=== PATIENT | male | born 1970 | race Caucasian/White ===

== ENCOUNTER 2020-07-20 16:39 | Emergency (ER) | payer OTHER ==
[~2020-07-20] VITALS: Ht 193 cm; Wt 79.4 kg
[~2020-07-20 16:39] MED LIST: ALBU90OI INH; ALBU90OI61 INH; Amitriptyline H50 MG PO; CITA20 PO; DICL25ER PO; GABA300 PO; HYDPAM50 PO; IBUP800 PO; Norco 5-325 Ta1 EACH PO; OLAN5 PO; Valium5 MG PO
[2020-07-20 17:30] LABS: BASOPHILS ABSOLUTE AUTO 0.06 K/mm3 (0.00-0.23); BASOPHILS PERCENT AUTO 1 % (0-2); EOSINOPHILS ABSOLUTE AUTO 0.34 K/mm3 (0.00-0.68); EOSINOPHILS PERCENT AUTO 3 % (0-6); Hematocrit 43.4 % (37.0-53.0); IMMATURE GRAN ABSOLUTE AUTO 0.04 K/mm3 (0.00-0.10); IMMATURE GRAN PERCENT AUTO 0 % (0-1); LYMPHOCYTES ABSOLUTE AUTO 2.28 K/mm3 (0.84-5.20); LYMPHOCYTES PERCENT AUTO 20 % (21-46); MONOCYTES ABSOLUTE AUTO 1.36 K/mm3 (0.16-1.47); MONOCYTES PERCENT AUTO 12 % (4-13); Mean Corpuscular HGB 28.1 pg (26.0-34.0); Mean Corpuscular HGB Conc 32.3 g/dL (31.5-36.5); Mean Corpuscular Volume 87 fL (80-100); Mean Platelet Volume 9.4 fL (9.1-12.4); NEUTROPHILS ABSOLUTE AUTO 7.21 K/mm3 (1.96-9.15); NEUTROPHILS PERCENT AUTO 64 % (41-73); Platelet Count 315 K/mm3 (150-400); RDW Coefficient Variation 15.2 % (11.7-14.2); RDW Standard Deviation 48.7 fL (35.1-46.3); Red Blood Cell Count 4.98 M/mm3 (4.30-5.90); White Blood Cell Count 11.29 K/mm3 (4.00-11.30)
[2020-07-20 17:55] LABS: Alanine Aminotransfer (ALT/SGP 22 U/L (12-78); Albumin, Blood 3.9 g/dL (3.4-5.0); Alk Phos 124 U/L (50-136); Anion Gap 7 mmol/L (6-16); Aspartate Aminotrans (AST/SGOT 21 U/L (12-37); Bilirubin, Total 0.4 mg/dL (0.1-1.0); Blood Urea Nitrogen 15 mg/dL (8-24); Bun/Creatinine Ratio 18.6 (12.0-20.0); CO2, Blood 30 mmol/L (21-32); Calcium, Blood 9.8 mg/dL (8.5-10.1); Chloride, Blood 105 mmol/L (98-108); Creatinine, Blood 0.81 mg/dL (0.60-1.20); Globulin, Blood 4.1 g/dL (2.2-4.0); Glomerular Filtration Rate >60 (60-); Glucose, Blood 82 mg/dL (70-99); Potassium, Blood 4.3 mmol/L (3.5-5.5); Sodium, Blood 142 mmol/L (136-145); Troponin I <0.015 ng/mL (0.000-0.040)
[2020-07-20] MEDS ORDERED: AZIT250 PO (23:05)
[2020-07-20] MEDS ORDERED: ALBU90OI INH (23:05)
== END 2020-07-20 23:39 | disposition home or self-care (01) ==
LOC: ER 16:39
PROVIDERS: Emergency Medicine
DX: J18.9 Pneumonia, unspecified organism (principal); F25.9 Schizoaffective disorder, unspecified; F17.200 Nicotine dependence, unspecified, uncomplicated; Z20.828 Contact with and (suspected) exposure to other viral communicable diseases; Z88.8 Allergy status to other drugs, medicaments and biological substances; Z79.899 Other long term (current) drug therapy
CPT/HCPCS: 36415; 71045; 71260; 80053; 83605; 84484; 85025; 85379; 93005; 93010; 96361; 96365; 96367; 99285-25; J0456; J0696; J7030; J7050; Q9967; U0003

== ENCOUNTER 2020-09-17 09:33 | Emergency (ER) | payer OTHER ==
[~2020-09-17] VITALS: Ht 195.6 cm; Wt 79.4 kg
[~2020-09-17 09:33] MED LIST changes: +AZIT250 PO
[2020-09-17] MEDS ORDERED: CEPH500 PO (10:11)
[2020-09-17] MEDS ORDERED: Bactrim Ds Tab1 EACH PO (10:11)
== END 2020-09-17 10:19 | disposition home or self-care (01) ==
LOC: ER 09:33
DX: L02.413 Cutaneous abscess of right upper limb (principal); F20.9 Schizophrenia, unspecified; F17.210 Nicotine dependence, cigarettes, uncomplicated; Z88.8 Allergy status to other drugs, medicaments and biological substances; Z79.899 Other long term (current) drug therapy
CPT/HCPCS: 99282

== ENCOUNTER 2021-05-06 05:34 | Emergency (ER) | payer OTHER ==
[~2021-05-06] VITALS: Ht 193 cm; Wt 77.1 kg
[~2021-05-06 05:34] MED LIST changes: +Bactrim Ds Tab1 EACH PO; +CEPH500 PO
== END 2021-05-06 08:59 | disposition home or self-care (01) ==
LOC: ER 05:34
DX: S00.93XA Contusion of unspecified part of head, initial encounter (principal); S09.90XA Unspecified injury of head, initial encounter; F17.200 Nicotine dependence, unspecified, uncomplicated; Z88.8 Allergy status to other drugs, medicaments and biological substances; W22.8XXA Striking against or struck by other objects, initial encounter
CPT/HCPCS: 70450; 99284-25; A9270

== ENCOUNTER 2021-05-10 20:12 | Inpatient (IN) | payer OTHER ==
[~2021-05-10] VITALS: Ht 185.4 cm; Wt 75.0 kg
[2021-05-10 20:35] LABS: BASOPHILS ABSOLUTE AUTO 0.08 K/mm3 (0.00-0.23); BASOPHILS PERCENT AUTO 0 % (0-2); Hematocrit 33.3 % (37.0-53.0); Hemoglobin 11.6 g/dL (13.5-17.5); LYMPHOCYTES ABSOLUTE AUTO 0.78 K/mm3 (0.84-5.20); LYMPHOCYTES PERCENT AUTO 3 % (21-46); MONOCYTES ABSOLUTE AUTO 1.52 K/mm3 (0.16-1.47); MONOCYTES PERCENT AUTO 6 % (4-13); Mean Corpuscular HGB 28.5 pg (26.0-34.0); Mean Corpuscular HGB Conc 34.8 g/dL (31.5-36.5); Mean Corpuscular Volume 82 fL (80-100); Mean Platelet Volume 9.2 fL (9.1-12.4); Platelet Count 587 K/mm3 (150-400); RDW Coefficient Variation 14.6 % (11.7-14.2); RDW Standard Deviation 42.7 fL (35.1-46.3); Red Blood Cell Count 4.07 M/mm3 (4.30-5.90); White Blood Cell Count 24.69 K/mm3 (4.00-11.30)
[2021-05-10 20:36] LABS: EOSINOPHILS PERCENT AUTO 0 % (0-6); IMMATURE GRAN ABSOLUTE AUTO 0.38 K/mm3 (0.00-0.10); IMMATURE GRAN PERCENT AUTO 2 % (0-1); NEUTROPHILS ABSOLUTE AUTO 21.93 K/mm3 (1.96-9.15); NEUTROPHILS PERCENT AUTO 89 % (41-73)
[2021-05-10 20:49] LABS: Alanine Aminotransfer (ALT/SGP 66 U/L (12-78); Albumin, Blood 2.1 g/dL (3.4-5.0); Albumin/Globulin Ratio 0.4 (0.8-1.8); Alk Phos 165 U/L (50-136); Anion Gap 4 mmol/L (6-16); Aspartate Aminotrans (AST/SGOT 72 U/L (12-37); Bilirubin, Total 0.8 mg/dL (0.1-1.0); Blood Urea Nitrogen 33 mg/dL (8-24); Bun/Creatinine Ratio 34.4 (12.0-20.0); CO2, Blood 31 mmol/L (21-32); Calcium, Blood 8.8 mg/dL (8.5-10.1); Chloride, Blood 92 mmol/L (98-108); Creatinine, Blood 0.96 mg/dL (0.60-1.20); Globulin, Blood 5.1 g/dL (2.2-4.0); Glomerular Filtration Rate >60 (60-); Glucose, Blood 132 mg/dL (70-99); Potassium, Blood 4.3 mmol/L (3.5-5.5); Sodium, Blood 127 mmol/L (136-145); Total Protein, Blood 7.2 g/dL (6.4-8.2); Troponin I <0.015 ng/mL (0.000-0.040)
[2021-05-10 21:30] LABS: SARS-Cov-2 (COVID-19) PCR, MMC NEGATIVE (NEGATIVE)
--- NOTE | 2021-05-11 03:14 | NUR ---
PT WITH TEMP 101.2,ALSO NO ORDERS FOR PAIN MEDS. I CALED DR SALGADO AND RECEIVED ORDERS FOR BOTH.
[2021-05-11 04:40] LABS: Source, Urine Catheter
[2021-05-11 04:41] LABS: Appearance, Urine Clear (Clear); Bilirubin, Urine Neg (Neg); Blood, Urine 4+ (Neg); Color, Urine Amber (P-Yellow); Glucose Qualitative, Urine Neg (Neg); Ketones, Urine Neg (Neg); Leukocyte Esterase, Urine 3+ (Neg); Nitrite, Urine Pos (Neg); Protein, Urine 2+ (Neg); Specific Gravity, Urine 1.015 (1.003-1.022); Urobilinogen, Urine NORM (Normal)
[2021-05-11 04:47] LABS: Bacteria Many /hpf; Red Blood Cells, Urine 0-2 /hpf (0-2); Squamous Epithelial Cells Not Seen /hpf (Few); White Blood Cells, Urine 50-100 /hpf (0-5)
[2021-05-11 05:25] LABS: BASOPHILS ABSOLUTE AUTO 0.06 K/mm3 (0.00-0.23); BASOPHILS PERCENT AUTO 0 % (0-2); Hematocrit 31.6 % (37.0-53.0); Hemoglobin 10.8 g/dL (13.5-17.5); LYMPHOCYTES ABSOLUTE AUTO 0.82 K/mm3 (0.84-5.20); LYMPHOCYTES PERCENT AUTO 3 % (21-46); MONOCYTES ABSOLUTE AUTO 1.45 K/mm3 (0.16-1.47); MONOCYTES PERCENT AUTO 6 % (4-13); Mean Corpuscular HGB 28.6 pg (26.0-34.0); Mean Corpuscular HGB Conc 34.2 g/dL (31.5-36.5); Mean Corpuscular Volume 84 fL (80-100); Platelet Count 560 K/mm3 (150-400); RDW Coefficient Variation 14.8 % (11.7-14.2); RDW Standard Deviation 45.2 fL (35.1-46.3); Red Blood Cell Count 3.78 M/mm3 (4.30-5.90)
[2021-05-11 05:28] LABS: EOSINOPHILS PERCENT AUTO 0 % (0-6); IMMATURE GRAN ABSOLUTE AUTO 0.41 K/mm3 (0.00-0.10); IMMATURE GRAN PERCENT AUTO 2 % (0-1); NEUTROPHILS ABSOLUTE AUTO 21.66 K/mm3 (1.96-9.15); NEUTROPHILS PERCENT AUTO 89 % (41-73)
[2021-05-11 05:45] LABS: Alanine Aminotransfer (ALT/SGP 54 U/L (12-78); Albumin/Globulin Ratio 0.5 (0.8-1.8); Alk Phos 142 U/L (50-136); Anion Gap 6 mmol/L (6-16); Aspartate Aminotrans (AST/SGOT 60 U/L (12-37); Bilirubin, Total 0.8 mg/dL (0.1-1.0); Blood Urea Nitrogen 34 mg/dL (8-24); Bun/Creatinine Ratio 38.6 (12.0-20.0); CO2, Blood 28 mmol/L (21-32); Calcium, Blood 8.7 mg/dL (8.5-10.1); Chloride, Blood 97 mmol/L (98-108); Creatinine, Blood 0.88 mg/dL (0.60-1.20); Globulin, Blood 4.4 g/dL (2.2-4.0); Glomerular Filtration Rate >60 (60-); Glucose, Blood 109 mg/dL (70-99); Potassium, Blood 3.9 mmol/L (3.5-5.5); Sodium, Blood 131 mmol/L (136-145); Total Protein, Blood 6.4 g/dL (6.4-8.2)
--- NOTE | 2021-05-11 07:30 | NUR ---
SHIFT SUMMARY: PT ADMITTED FROM ER FOR A LEFT SIDED NECK ABSCESS. A&O X4. FEBRILE WITH TMAX OF 101.2. MEDICATED WITH TYLENOL PER EMAR. MOST RECENT TEMP 98. TELE APPLIED; NSR AT 86. PT REPORTS OCCASIONAL CHEST PAIN. REPORTS SOB. LUNGS CLEAR THROUGHOUT AND O2 STABLE ON RA. NECK IS SWOLLEN AND WARM TO TOUCH. PT DENIES TROUBLE SWALLOWING. PT HAVING A DIFFICULT TIME URINATING. BLADDER SCAN >1000ML. STRAIGHT CATH INSERTED PER ORDERS WITH 1000ML OUT. URINE ORANGE AND CLOUDY. IVF AND ABX INFUSING PER EMAR. PT REPORTS NOT HAVING ANYTHING TO EAT OR DRINK FOR 4 DAYS. REPORTS HOMELESSNESS. PT NPO. AWAITING CONSULT W/ENT.
--- NOTE | 2021-05-11 09:24 | NUR ---
Echocardiogram completed.
--- NOTE | 2021-05-11 12:40 | NUR ---
DR MAYFIELD INTO SEE PT. NO SURGICAL INTERVENTION @ THIS TIME.
--- NOTE | 2021-05-11 18:10 | NUR ---
SHIFT SUMMARY PT HAS BEEN PLEASANT TODAY. TALKS TO SELF @ X's AND APPEARS TO HAVE SOME HALLUCINATIONS. PER DR MAYFIELD, NONE SURGICAL APPROUCH TO NECK. SWELLING/REDNESS TO NECK, UNCHANGED. PALACIOS PLACED DUE TO URINARY RETENTION. IV ABX INFUSED ORDERED. TOLERATING DIET.
--- NOTE | 2021-05-11 19:39 | NUR ---
DR MAYFIELD IN FOR BEDSIDE I&D. CX SENT.
--- NOTE | 2021-05-11 22:41 | NUR ---
PT VERY PARANOID AND IRRITABLE WITH NURSING CARE. THIS RN IS ATTEMPTING TO PLACE A PRESSURE DRESSING TO NECK THERE IS A LARGE AMOUNT OF BLEEDING. PT VERY ANGRY STATING WE ARE TRYING TO HURT HIM AND TO LEAVE HIM ALONE AND NOT TOUCH HIM. PT REPORTS HE IS VERY HOT. HEAT TURNED DOWN IN ROOM, FAN GIVEN TO PT, AND ICE PACKS GIVEN TO PT FOR COMFORT. PT STILL VERY ANGRY STATING HE WANTS TO GO TO [facility]. THIS RN AND PACK PRESS OPERATOR LEFT ROOM PER PT REQUEST. CALL LIGHT WITHIN REACH. WILL MONITOR.
[2021-05-12 02:19] LABS: Hematocrit 27.8 % (37.0-53.0); Hemoglobin 9.4 g/dL (13.5-17.5)
--- NOTE | 2021-05-12 03:02 | NUR ---
DR. MAYFIELD AT BEDSIDE. NOTIFIED OF BLOOD CX RESULTS.
--- NOTE | 2021-05-12 03:33 | NUR ---
TOOL POLISHER AT APPROX 0150, THIS RN AND CITY DISTRIBUTION CLERK WENT TO ROUND ON PT. UPON ENTERING ROOM, PT APPEARED TO BE SLEEPING. THIS RN NOTICED A LARGE PUDDLE OF BLOOD ON THE GROUND AND A LARGE PORTION OF THE PT'S BEDSHEETS AND LINENS SATURATED IN BLOOD. PT HAD PULLED OFF PREVIOUSLY PLACED PRESSURE DRESSING. THIS RN IMMEDIATELY PLACED STERILE 4X4 GAUZE ONTO NECK WITH PRESSURE. CITY DISTRIBUTION CLERK OBTAINED VS AND TOOL POLISHER WAS CALLED. DR. YAP AND SHREDDED FILLER MACHINE WRAPPER LAYER AT BEDSIDE. VERBAL ORDERS GIVEN TO BOLUS X1 LITER OF LR AND OBTAIN STAT LABS. PT WAS ALERT AND ABLE TO ANSWER QUESTIONS, BUT WAS NONSENSICAL AT TIMES. SURGICAL SERVICE COUNSELOR NOTIFIED DR. MAYFIELD TO COME EVALUATE PT. DR. MAYFIELD ARRIVED AT BEDSIDE AT APPROX 0215. VERBAL ORDERS FOR MEDS + EQUIP TO PERFORM A BEDSIDE PROCEDURE TO STOP THE BLEEDING. DURING PROCEDURE, STAFF MADE THE DECISION TO FINISH PROCEDURE IN THE OPERATING ROOM. SECOND LITER OF LR STARTED PRIOR TO MOVING PT TO THE OR. PT TO OR AT APPROX 0310. SEE TOOL POLISHER DOCUMENTATION.
--- NOTE | 2021-05-12 03:55 | NUR ---
PT BACK FROM PROCEDURE AT THIS TIME.
--- NOTE | 2021-05-12 04:27 | NUR ---
CHART, PT PERSONAL BELONGINGS, AND 0600 ZOSYN TRANSFERRED WITH PT TO PCU.
--- NOTE | 2021-05-12 04:40 | NUR ---
CARE ASSUMPTION RECIEVED PT FROM SURGICAL FLOOR. PT IS LETHARGIC BUT AROUSABLE W SPEECH. BP REMAINS SOFT 95/60. O2 SATS >92% ON RM AIR DESPITE UNUSUAL AND LABOBORED BREATHING PATTERN WHICH IS HIS BASELINE PATTERN PER SURGICAL FLOOR NURSE. PROVIDER MARELY CAME TO BEDSIDE TO CONFIRM PLAN AND REQUEST UPDATE W STAT H&H LAB DRAW. PT IN NO OBVIOUS DISTRESS AND IS SLEEPING.
[2021-05-12 04:56] LABS: Hematocrit 22.2 % (37.0-53.0); Hemoglobin 7.5 g/dL (13.5-17.5); Mean Corpuscular HGB 28.7 pg (26.0-34.0); Mean Corpuscular HGB Conc 33.8 g/dL (31.5-36.5); Mean Corpuscular Volume 85 fL (80-100); Mean Platelet Volume 8.9 fL (9.1-12.4); Platelet Count 572 K/mm3 (150-400); RDW Coefficient Variation 15.1 % (11.7-14.2); RDW Standard Deviation 46.8 fL (35.1-46.3); Red Blood Cell Count 2.61 M/mm3 (4.30-5.90); White Blood Cell Count 26.04 K/mm3 (4.00-11.30)
[2021-05-12 05:12] LABS: Albumin, Blood 1.4 g/dL (3.4-5.0); Anion Gap 5 mmol/L (6-16); Blood Urea Nitrogen 22 mg/dL (8-24); Bun/Creatinine Ratio 30.3 (12.0-20.0); CO2, Blood 29 mmol/L (21-32); Calcium, Blood 7.8 mg/dL (8.5-10.1); Chloride, Blood 99 mmol/L (98-108); Creatinine, Blood 0.73 mg/dL (0.60-1.20); Glomerular Filtration Rate >60 (60-); Glucose, Blood 146 mg/dL (70-99); Phosphorus, Blood 2.8 mg/dL (2.5-4.9); Potassium, Blood 4.2 mmol/L (3.5-5.5); Sodium, Blood 133 mmol/L (136-145); Vancomycin, Trough 5.9 ug/mL (5.0-10.0)
--- NOTE | 2021-05-12 05:51 | NUR ---
PHOTOGRAPHIC ENGINEER SUMMARY PT IS AXO TO SELF AND IS VERY PARANOID THIS SHIFT REFUSING CARE BY STAFF. THE PT'S HBG THIS AM IS 7.5 SO PROVIDER MARELY ORDERED 1 UNIT PRBC'S. PT SHOWS NO S/S OF ACTIVE BLEEDING BUT HAS LARGE AMOUNT OF DRIED BLOOD ON THE BACK OF HIS HEAD BUT REFUSING TO LET STAFF CLEAN THIS THOUROUGHLY AT THIS TIME. BP REMAINS SOFT 90'S OVER 60. PT SHOWS NO S/S OF PAIN AT THIS TIME. PT REFUSING SECOND IV INSERTION AT THIS TIME SO PRBC'S TO BE INFUSED FOLLOWING 0600 ABX. BED ALARM ON AND CALL LIGHT WITHIN REACH.
--- NOTE | 2021-05-12 11:15 | NUR ---
PT TRANSFERRED TO ROOM 224. PT IS IN SOFT WRIST RESTRAINTS AND RHINA VEST. PT IS NOT ORIENTED, AND IS VERY PARANOID. MONITORING ON. DISCUSSED W/DR GOLDSMITH; ORDERS ENTERED. PT'S O2 IS IN 90'S ON RA, HAS ALMOST APNIC PERIODS W/SHALLOW BREATHING. PROVIDER AWARE.
--- NOTE | 2021-05-12 11:24 | NUR ---
AT 0715 PT D/C'ED TELEMETRY, IV, PALACIOS STATLOCK, AND RADHA DRAIN, DR. GOLDSMITH WAS CALLED AT 0716 AND ORDER FOR VEST AND SOFT UPPER WRIST RESTRAINTS WAS OBTAINED, PIVS STARTED IN L FA AND L AC, DR. MAYFIELD WAS CALLED AT 0800 AND NOTIFIED OF RADHA REMOVAL, VERBAL DIRECTIONS TO GATHER MATERIALS FOR REINSERTION PROCEDURE, TRANSFER ORDER PLACED FOR MED WITH NO TELE, ROOM 224 ASSIGNED, TELEPHONE REPORT CALLED TO DAVID YANEZ AT 1041, PT TRANSFERRED TO NEW ROOM AT 1053, NO ACUTE CHANGES AT THIS TIME
[2021-05-12 12:05] LABS: Hematocrit 20.9 % (37.0-53.0)
[2021-05-12 12:08] LABS: U Amphetamine Screen Not Detected; U Barbituate Screen Not Detected; U Benzodiazapine Screen DETECTED; U Buprenorphine Screen Not Detected; U Cannabinoids Screen DETECTED; U Cocaine Screen Not Detected; U Methadone Screen Not Detected; U Methamphetamine Screen Not Detected; U Opiates Screen Not Detected; U Oxycodone Screen Not Detected; U Phencyclidine Screen Not Detected; U Propoxyphene Screen Not Detected
--- NOTE | 2021-05-12 13:50 | NUR ---
ENTERED PATIENT ROOM, NOTED TO HAVE AGONAL RESPIRATIONS. PATIENT MONITORED, APNEIC FOR 25 SECONDS, DESATS TO 63%. PATIENT SPONTANEOUSLY HAD LOUD INSPIRATION AND OXYGEN SATS TO 97%. PATIENT WAKENS BRIEFLY AND ASKS ME THE DATE, TRIES TO REMOVE RESTRAINTS, BECOMES SIGNFICANTLY AGITATED TALKING ABOUT THE GYPSY JOKERS, TELLING ME TO REMOVE THE FUCKING MECHANINICAL INDUSTRIAL RESTRAINTS. PATIENT MEDICATED FOR AGITATION, PLACED ON OXYGEN VIA NC AND CALL PLACED TO DR ALVARENGA WITH UPDATE AND REQUEST FOR ABG.
[2021-05-12 13:51] LABS: PCO2 Arterial 47.9 mmHg (35-45); PO2 Arterial 84.4 mmHg (80-100); pH Blood Arterial 7.41 (7.35-7.45)
--- NOTE | 2021-05-12 14:40 | NUR ---
PT TRANSFERRED TO ROOM 224 THIS AFTERNOON. BREATING PATTERN IS APNIC, WITH APPROX 20-25 SECOND PAUSES. PT IS IN SOFT WRIST RESTRAINTS AND RHINA VEST, ALSO ON CONT VIDEO MONITORING HE IS PULLING AT LINES/PALACIOS/TELE. ABG DRAWN, HEAD AND NECK CT ORDERED FOR DECR LOC AND APENIC PERIODS. PT IS NOT ORIENTED AND IS DROWSY, FALLING ASLEEP MID-SENTENCE. UNIT OF BLOOD IS TRANSFUSING, ABX ALSO INFUSING. PT TO CT AT 1445.
--- NOTE | 2021-05-12 14:47 | NUR ---
RADHA PLACED BY DR MAYFIELD THIS AFTERNOON ABOUT 1300. PHYSICIAN USED LOCAL LIDOCAINE INJECTION. SITE COVERED WITH 4X4'S AND MEDIPORE TAPE.
--- NOTE | 2021-05-12 15:18 | NUR ---
ASSUMED CARE OF PATIENT AT APROX 1500 FROM BEAU CABRERA RN. BLOOD GLUCOSE CHECKED WITH RESULT OF 55. DR GOLDSMITH NOTIFED, ORDER FOR BANANA BAG PER EMAR. PT CONTINUES TO APPEAR CONFUSED, DOES NOT ANSWER QUESTIONS. WITH PROLONGED APNIC SPELLS UP TO 26 SECONDS. O2 AT THIS TIME 98% ON 3L O2 VIA NC. HEAD AND NECK CT COMPLETE, MD AWARE.
--- NOTE | 2021-05-12 16:16 | NUR ---
DR ALVARENGA IN ROOM TO ASSESS PT.
--- NOTE | 2021-05-12 18:45 | NUR ---
SHIFT SUMMARY PT CONFUSED SINCE ASSUMPTION OF CARE. CONTINUES WITH APNEIC SPELLS 25-20 SEC, O2 SAT 100% ON RA. DRESSING TO L SIDE OF NECK SATURATED, CHANGED AT THIS TIME, RADHA IN PLACE. BANANA BAG RUNNING AT 200ML/HR. BILAT SOFT WRIST RESTRAINTS IN PLACE PER ORDER, Q2H CHECKS ALL WNL. CONTINUOUS MONITORING AND TELE IN PLACE.
[2021-05-12 19:43] LABS: PCO2 Arterial 39.9 mmHg (35-45); PO2 Arterial 65.1 mmHg (80-100)
[2021-05-13 02:30] LABS: PCO2 Arterial 63.9 mmHg (35-45); PO2 Arterial 64.4 mmHg (80-100)
[2021-05-13 02:47] LABS: BASOPHILS ABSOLUTE AUTO 0.05 K/mm3 (0.00-0.23); BASOPHILS PERCENT AUTO 0 % (0-2); Hemoglobin 8.1 g/dL (13.5-17.5); LYMPHOCYTES ABSOLUTE AUTO 1.06 K/mm3 (0.84-5.20); LYMPHOCYTES PERCENT AUTO 4 % (21-46); MONOCYTES ABSOLUTE AUTO 1.97 K/mm3 (0.16-1.47); MONOCYTES PERCENT AUTO 8 % (4-13); Mean Corpuscular HGB 28.5 pg (26.0-34.0); Mean Corpuscular HGB Conc 33.8 g/dL (31.5-36.5); Mean Corpuscular Volume 85 fL (80-100); Mean Platelet Volume 8.8 fL (9.1-12.4); Platelet Count 722 K/mm3 (150-400); RDW Coefficient Variation 15.1 % (11.7-14.2); RDW Standard Deviation 46.3 fL (35.1-46.3); Red Blood Cell Count 2.84 M/mm3 (4.30-5.90); White Blood Cell Count 24.31 K/mm3 (4.00-11.30)
[2021-05-13 02:48] LABS: EOSINOPHILS ABSOLUTE AUTO 0.01 K/mm3 (0.00-0.68); EOSINOPHILS PERCENT AUTO 0 % (0-6); IMMATURE GRAN ABSOLUTE AUTO 0.32 K/mm3 (0.00-0.10); IMMATURE GRAN PERCENT AUTO 1 % (0-1); NEUTROPHILS PERCENT AUTO 86 % (41-73)
--- NOTE | 2021-05-13 03:17 | NUR ---
RAPID RESPONSE INTITIATED AND PT WAS TRANSFERED TO ICU4. PT VSS AT THE BEGINING OF SHIFT. SATURATING AT 94-96% WITH 3-4L 02 N/C. BANANA BAG, ZOSYN AND VANCOMYCIN WAS ADMINISTERED. PT WAS PUT IN ISO PRECAUTION DUE TO MRSA. PT HAD COARSE LUNG SOUNDS. GARGLE INTERMITTENTLY. SUCTIONED EVERY 2H. I CAME TO CHECK ON THE PATIENT AROUND 0130AM. HE WAS RESTLESS AND AGITATED. ADMINISTERED 1MG ATIVAN. I RECHECKED HIS VITALS. HE WAS DESATURATING AT 75% WITH 4L O2, N/C. INCREASED O2 TO 10L N/C. NO IMPROVEMENT. CALLED [employer], SPOKE WITH JANUARY. PT ON SINUS TACH ON 100'S. CALLED CHARGE NURSE HO HERNANDEZ AND SHE ASSISTED ME. PT WAS PLACED ON OXYMIZER 15L. STILL SATURATING AT 85%. CALLED RT FOR ASSISTANCE. RT CAME IN AND ADVISE TO CALL RAPID RESPONSE AND WILL INITIATE FOR BIPAP. RAPID RESPONSE WAS CALLED IN AT 0220. TEAM CAME IN WITH DR. YAP AND DR NERI CAME TO SEE PT WELL. ORDERS WERE INITIATED. LABS WAS DRAWN. LASIX GIVEN. PT WAS PUT IN BIPAP. SATURATION WAS IMPROVED TO 97% WITH BPAP. PT WAS TRANSFERED TO ICU4. REPORT GIVEN TO CHASE SALES SUPPORT TECHNICIAN. MEDS AND CHART WERE BROUGHT TO ICU4.
--- NOTE | 2021-05-13 03:33 | NUR ---
ASSUMPTION OF CARE Received report from Sunshine Rubio RN on surgical floor @ 9220. Pt brought to ICU from rapid response r/t respiratory distress. Pt currently on Bipap 18/ 55%, currently sats at 95%. Lung sounds are coarse throughout. Lasix 40mg IV had been given prior to ICU arrival. HR is ST in 110's, BP stable. Pt is not oriented at this time, but appears to be restless at time. Chest x-ray complete, blood currently transfusing. Will continue to monitor and treat as prescribed.
[2021-05-13 05:44] LABS: Vancomycin, Trough 9.3 ug/mL (5.0-10.0)
--- NOTE | 2021-05-13 06:28 | NUR ---
Pt currently sleeping. Bipap 18/ 55%, sats 93%. Pt is arousable to name, able to open eyes to command, but does not squeeze hands. Spontaneously wakes up confused and disoriented. Lungs coarse throughout. Blood transfusion complete & tolerated well. Urine output responded to Lasix administration. Rebollar patent, draining yellow urine to gravity. VSS. Will give report to oncoming RN.
[2021-05-13 07:27] LABS: Alanine Aminotransfer (ALT/SGP 42 U/L (12-78); Albumin, Blood 1.8 g/dL (3.4-5.0); Albumin/Globulin Ratio 0.4 (0.8-1.8); Alk Phos 131 U/L (50-136); Anion Gap 4 mmol/L (6-16); Aspartate Aminotrans (AST/SGOT 38 U/L (12-37); Bilirubin, Total 0.6 mg/dL (0.1-1.0); Blood Urea Nitrogen 15 mg/dL (8-24); Bun/Creatinine Ratio 29.5 (12.0-20.0); CO2, Blood 30 mmol/L (21-32); Calcium, Blood 8.1 mg/dL (8.5-10.1); Chloride, Blood 99 mmol/L (98-108); Creatinine, Blood 0.51 mg/dL (0.60-1.20); Glomerular Filtration Rate >60 (60-); Glucose, Blood 128 mg/dL (70-99); Potassium, Blood 3.9 mmol/L (3.5-5.5); Sodium, Blood 133 mmol/L (136-145); Total Protein, Blood 5.8 g/dL (6.4-8.2)
--- NOTE | 2021-05-13 18:24 | NUR ---
PT REMAINED LETHARGIC AND CONFUSED THROUGH SHIFT. ON BIPAP FOR MOST OF DAY, PT HAD SEVERAL BREAKS FROM BIPAP MASK WITH 02 VIA NASAL CANNULA AT 2-4 L. WHEN NOT ON BIPAP PT WOULD HAVE APNEIC EPISODES WHEN NOT ON BIPAP. THIS RN REDRESSED RESSING ON BACK OF NECK WHICH WAS SOAKED THROUGH WITH PURULENT DRAINAGE, THIS RN SHOWED OLD DRESSING WITH DRAINAGE TO DR. MAYFIELD WHEN AT BEDSIDE. PT AWOKE VERY AGITATED AT START OF SHIFT, ATIVAN GIVEN PER EMAR. RESTRAINTS IN PLACE, PT TOLERATING, BUT WAS ABLE TO PULL OFF PALACIOS STAT LOCK, WHICH THIS RN REPLACED.
--- NOTE | 2021-05-13 20:00 | NUR ---
ASSUMED CARE PT ALERT AND ORIENTED WITH AGITATION. SLEEPING AND WAKING ON AND OFF WHEN THIS RN IS IN ROOM. PT WAS NOTIFIED THAT HE WOULD BE GOING TO IMAGING AND STATED THE HE WOULD "FREAK THE F OUT IF," IF HE WENT LOOKING LIKE THAT. CALL LIGHT IS WITH IN REACH. WILL CONTINUE TO MONITOR.
--- NOTE | 2021-05-13 21:19 | NUR ---
PT WENT TO IMAGING AND TOLERATED WELL. PT WAS ALERT AND ORIENTED WITH SOME NOTED CONFUSION OM THE PROCEDURE. WAS REORIENTED TO PROCEDURE AND DID WELL. PT NOW IN ROOM SLEEPING. CALL LIGHT IS WITHIN REACH. WILL CONTINUE TO MONITOR.
--- NOTE | 2021-05-14 00:21 | NUR ---
PT IS SLEEPING AT THE TIME. SLEPT THROUGH CHANGING OF RESP MACHINE. VITALS ARE STABLE. WILL CONTINUE TO MONITOR.
[2021-05-14 03:54] LABS: Hematocrit 25.9 % (37.0-53.0); Hemoglobin 8.5 g/dL (13.5-17.5); Mean Corpuscular HGB 28.1 pg (26.0-34.0); Mean Corpuscular HGB Conc 32.8 g/dL (31.5-36.5); Mean Corpuscular Volume 86 fL (80-100); Mean Platelet Volume 8.9 fL (9.1-12.4); Platelet Count 933 K/mm3 (150-400); RDW Coefficient Variation 15.2 % (11.7-14.2); RDW Standard Deviation 47.3 fL (35.1-46.3); Red Blood Cell Count 3.03 M/mm3 (4.30-5.90); White Blood Cell Count 21.94 K/mm3 (4.00-11.30)
[2021-05-14 04:13] LABS: Albumin, Blood 1.9 g/dL (3.4-5.0); Anion Gap 5 mmol/L (6-16); Blood Urea Nitrogen 23 mg/dL (8-24); Bun/Creatinine Ratio 30.5 (12.0-20.0); CO2, Blood 33 mmol/L (21-32); Calcium, Blood 8.7 mg/dL (8.5-10.1); Chloride, Blood 98 mmol/L (98-108); Creatinine, Blood 0.75 mg/dL (0.60-1.20); Glomerular Filtration Rate >60 (60-); Glucose, Blood 108 mg/dL (70-99); Phosphorus, Blood 2.8 mg/dL (2.5-4.9); Potassium, Blood 3.7 mmol/L (3.5-5.5); Sodium, Blood 136 mmol/L (136-145)
--- NOTE | 2021-05-14 04:49 | NUR ---
SHIFT SUMMARY PT IS ALERT ORIENTED. THERE HAVE BEEN NO ACUTE CHANGES. PT SLEPT MOST OF THE EVENING AND NIGHT. THIS MORNING PT SAT UP AND HAD A SANDWICH, LEMONADE, JUICE AND WATER WHILE THIS NURSE REDRESSED HIS WOUND. PT WAS ALSO CONVERSING IS ORIENTED TO TOWN, FACILITY, MONTH, YEAR. WOUND HAS A MODERATE AMOUNT OF SEROSANGUINOUS FLUID; DRAIN IS INTACT. PT VITALS ARE STABLE; ON BIPAP OF 45% FIO2 WITH SATS ABOVE 92%. PT HAS ALSO TOLERATED 3-4L NC WELL WHILE TAKING BREAKS OFF BIPAP. PALACIOS IS PATENT AND DRAINING TO GRAVITY. CALL LIGHT IS WITHIN REACH.
[2021-05-14 13:25] LABS: Vancomycin, Trough 14.6 ug/mL (5.0-10.0)
--- NOTE | 2021-05-14 15:25 | NUR ---
As I stand outside patient's rm waiting to go in, I hear patient talking to his RN. Patient shows his schizo affect as he plays mind games with staff trying to get his retraints released while also putting out little statements that could be considered threats. Then when I enter the and introduce myself as a county historian he begins talking about scripture and God's love and the forgiving work of the cross. He asks me to play a couple of Restorationist songs from YouTube and asks for prayer, which I provide. He is kind and voices appreciation for the visit. I visit another patient and stand at the counter in ICU and hear him yelling obscenities. I will continue to remain available to help patient connect his baptist with his behavior.
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
[2021-05-15 04:13] LABS: Hematocrit 22.8 % (37.0-53.0); Hemoglobin 7.7 g/dL (13.5-17.5); Mean Corpuscular HGB 28.7 pg (26.0-34.0); Mean Corpuscular HGB Conc 33.8 g/dL (31.5-36.5); Mean Corpuscular Volume 85 fL (80-100); Mean Platelet Volume 8.5 fL (9.1-12.4); NRBC ABSOLUTE 0.05 K/mm3 (0.00-0.02); NRBC Auto 0.3 /100 WBC (0.0-0.2); Platelet Count 883 K/mm3 (150-400); RDW Coefficient Variation 15.3 % (11.7-14.2); RDW Standard Deviation 46.5 fL (35.1-46.3); Red Blood Cell Count 2.68 M/mm3 (4.30-5.90); White Blood Cell Count 16.04 K/mm3 (4.00-11.30)
[2021-05-15 04:31] LABS: Albumin, Blood 1.5 g/dL (3.4-5.0); Anion Gap 4 mmol/L (6-16); Blood Urea Nitrogen 16 mg/dL (8-24); Bun/Creatinine Ratio 26.7 (12.0-20.0); CO2, Blood 28 mmol/L (21-32); Calcium, Blood 7.1 mg/dL (8.5-10.1); Chloride, Blood 101 mmol/L (98-108); Glomerular Filtration Rate >60 (60-); Glucose, Blood 98 mg/dL (70-99); Magnesium, Blood 2.2 mg/dL (1.6-2.4); Potassium, Blood 3.8 mmol/L (3.5-5.5); Sodium, Blood 133 mmol/L (136-145)
--- NOTE | 2021-05-15 05:13 | NUR ---
SHIFT SUMMARY PT RESTED WELL THROUGH THE NIGHT. ANXIOUS AT TIMES, ATIVAN GIVEN - SEE EMAR. ALERT AND ORIENTED. MENTATION CLEARING UP. SATS >95% ON ROOM AIR, EVEN WHILE AT REST SLEEPING. TELE NSR. NO C/O CHEST PAIN. HR AND BP WNL. PALACIOS DRAINING TO GRAVITY, DAVE CARE PERFORMED. ATTENDS IN PLACE, BUT NO BM TONIGHT. PT REMAINS IN RHINA AND BILAT SWR. STILL NEEDED, BUT PT MORE COMPLIANT AND LESS AGITATED WHILE WEARING THEM. PT HAS RADHA DRAIN IN BACK OF L NECK, DRESSING CHANGED ONCE THROUGH SHIFT - THICK SANGENOUS DRAINAGE. PARTIAL BED BATH/LINEN CHANGE FROM DRIED BLOOD IN HAIR. CIWA Q4 - 4, 3, AND 3. VSS. CALL LIGHT WTIHIN REACH, BED IN LOWEST POSITION. BED ALARM ON. WILL CONTINUE TO MONITOR.
--- NOTE | 2021-05-15 08:00 | NUR ---
INITIAL ASSESSMENT: ASSUMED CARE FROM JOSE RN. PT IS RESTING WITH EYES CLOSED, HAVING OCCASIONAL APNEC EPISODES. C-PAP PLACED ON PATIENT, OXYGEN SATURATIONS UP TO 100%. PT HAS BULKY DRESSING TO LEFT NECK, ABD PAD WITH MEFIX TAPE, IT IS STARTING TO OOZE OUT THE BOTTOM, SERRO-SANG. WOUND CLEANSED, RADHA DRAIN TO LEFT NECK SECURED WITH SUTURES. ABD PAD WITH MEFIX TAPE PLACED OVER WOUND. PT HAS RHINA AND SOFT WRIST RESTRAINTS BILATERALLY. WRIST RESTRAINTS REMOVED SO THAT PATIENT CAN EAT BREAKFAST, PT ALSO STATES HE IS, "MUCH MORE CALM WITHOUT THEM ON." CALLED TO CONFIRM PATIENT IS ON REMOTE MONITORING, CONFIRMED AND ASKED THEM TO LET ME KNOW IF HE REACHES FOR HIS DRESSING. AM MEDS GIVEN. AT BEDSIDE WITH CARE MANAGEMENT, SEE NEW ORDERS. PT SLID UP IN BED AND SET UP TO EAT BREAKFAST. CALL LIGHT IN REACH, WILL CONTINUE TO MONITOR.
[2021-05-15 13:05] LABS: Hematocrit 24.1 % (37.0-53.0)
[2021-05-15 13:33] LABS: Vancomycin, Trough 13.9 ug/mL (5.0-10.0)
--- NOTE | 2021-05-15 14:44 | NUR ---
PATIENT IS RESTING WITH EYES CLOSED. VSS. DR. HENSLEY CALLED FOR POSSIBLE PAVAN, HE DISCUSSED THE PATIENT WITH DR. SERNA AND THEY HAVE DECIDED TO PROCEED WITH MEDICAL MANAGEMENT AND NOT DO THE PAVAN THE PATIENT IS CONFUSED AND UNABLE TO CONSENT. HE HAS BEEN OUT OF WRIST RESTRAINTS THE WHOLE SHIFT FOR ME SO FAR AND IS NOT PULLING AT HIS DRESSING ON THE LEFT NECK. RHINA STILL IN PLACE PATIENT IS CONFUSED AND IMPULSIVE. CALL LIGHT IN REACH. WILL CONTINUE TO MONITOR.
--- NOTE | 2021-05-15 15:50 | NUR ---
CALLED DR. SERNA FOR STATUS CHANGE. PT WAS CHANGED TO MEDICAL FLOOR WITH TELEMETRY. REPORT GIVEN TO YAYA. PATIENT TRANSFERRED TO ROOM 348 VIA BED.
--- NOTE | 2021-05-15 16:00 | NUR ---
PT ARRIVED TO ROOM 348 FROM ICU 1 VIA BED, HE WAS ABLE TO STAND WITH ASSISTANCE, VERY UNSTEADY, AND TRANSFER TO MEDICAL BED. IV VANCO INFUSING, BANANA BAG TO BE CONTINUED WHEN VANCO FINISHED. PT IN RHINA VEST, WILL CONTINUE. ORIENTED TO ROOM AND CALL JAY. WILL CONTINUE TO MONITOR
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
--- NOTE | 2021-05-16 05:20 | NUR ---
Rn summary: Patient is alert to self, place. Pt has been out of restraints all shift. Pt is cooperative. Pt was medicated for pain to left shoulder and neck with fentanyl 50mcg with minor relief. Pt found to have temp of 102.1. Tylenol 650mg given, temp at 0515 100.0. Drsg to left neck changed x3 for minimal sanquinous drainage. Drsg falls off. Ice to shoulder per pt request with some relief. Pt has lopez cath with good urine output. Pt taking snacks and fluids. Pt moves self in bed. Is weak. Bed alarm on, call light in reach. Will continue to monitor.
[2021-05-16 05:39] LABS: BASOPHILS ABSOLUTE AUTO 0.02 K/mm3 (0.00-0.23); BASOPHILS PERCENT AUTO 0 % (0-2); EOSINOPHILS ABSOLUTE AUTO 0.04 K/mm3 (0.00-0.68); EOSINOPHILS PERCENT AUTO 0 % (0-6); Hemoglobin 7.5 g/dL (13.5-17.5); IMMATURE GRAN ABSOLUTE AUTO 0.64 K/mm3 (0.00-0.10); IMMATURE GRAN PERCENT AUTO 4 % (0-1); LYMPHOCYTES ABSOLUTE AUTO 1.68 K/mm3 (0.84-5.20); LYMPHOCYTES PERCENT AUTO 11 % (21-46); MONOCYTES PERCENT AUTO 6 % (4-13); Mean Corpuscular HGB 28.5 pg (26.0-34.0); Mean Corpuscular HGB Conc 32.6 g/dL (31.5-36.5); Mean Corpuscular Volume 88 fL (80-100); Mean Platelet Volume 8.5 fL (9.1-12.4); NEUTROPHILS ABSOLUTE AUTO 11.78 K/mm3 (1.96-9.15); NEUTROPHILS PERCENT AUTO 78 % (41-73); NRBC ABSOLUTE 0.02 K/mm3 (0.00-0.02); NRBC Auto 0.1 /100 WBC (0.0-0.2); RDW Coefficient Variation 15.9 % (11.7-14.2); RDW Standard Deviation 49.5 fL (35.1-46.3); Red Blood Cell Count 2.63 M/mm3 (4.30-5.90); White Blood Cell Count 15.06 K/mm3 (4.00-11.30)
[2021-05-16 05:56] LABS: Albumin, Blood 1.6 g/dL (3.4-5.0); Anion Gap 7 mmol/L (6-16); Blood Urea Nitrogen 12 mg/dL (8-24); Bun/Creatinine Ratio 16.5 (12.0-20.0); CO2, Blood 28 mmol/L (21-32); Calcium, Blood 7.8 mg/dL (8.5-10.1); Chloride, Blood 99 mmol/L (98-108); Creatinine, Blood 0.73 mg/dL (0.60-1.20); Glomerular Filtration Rate >60 (60-); Glucose, Blood 126 mg/dL (70-99); Phosphorus, Blood 2.9 mg/dL (2.5-4.9); Potassium, Blood 3.7 mmol/L (3.5-5.5); Sodium, Blood 134 mmol/L (136-145)
[2021-05-16 06:16] LABS: Platelet Count 1025 K/mm3 (150-400)
--- NOTE | 2021-05-16 17:24 | NUR ---
PT BECAME AGITATED AT 1640. HE PULLED HIS IV. THREW IT ON FLOOR. GATHERED BELONGINGS. DEMANDED TO GO HOME. HE REFUSED TO SIGN AMA FORM. CALLED DR SERNA. HE REFUSED TO SIGN. AMBULATED SELF DOWN STAIRS TO 1ST FLOOR. I WALKED IN FRONT OF HIM IN CASE OF FALL DOWN STAIRS. SPOKE TO PT HE WALKING, DID NOT STOP AND REFUSED TO STA OR DISCUSS WITH HER. HE REFUSED ELEVATOR. HE DEMANDED I NOT TOUCH HIM. HE WALKED ALL THE WAY OUT THE DOOR AT 1655.
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
[2021-05-17 06:15] LABS: Vancomycin, Trough 14.9 ug/mL (5.0-10.0)
[2021-05-17 08:05] LABS: BASOPHILS ABSOLUTE AUTO 0.04 K/mm3 (0.00-0.23); BASOPHILS PERCENT AUTO 0 % (0-2); EOSINOPHILS ABSOLUTE AUTO 0.12 K/mm3 (0.00-0.68); EOSINOPHILS PERCENT AUTO 1 % (0-6); Hematocrit 24.4 % (37.0-53.0); IMMATURE GRAN PERCENT AUTO 2 % (0-1); LYMPHOCYTES ABSOLUTE AUTO 1.86 K/mm3 (0.84-5.20); LYMPHOCYTES PERCENT AUTO 11 % (21-46); MONOCYTES ABSOLUTE AUTO 1.01 K/mm3 (0.16-1.47); MONOCYTES PERCENT AUTO 6 % (4-13); Mean Corpuscular HGB 28.7 pg (26.0-34.0); Mean Corpuscular HGB Conc 32.8 g/dL (31.5-36.5); Mean Corpuscular Volume 88 fL (80-100); Mean Platelet Volume 8.3 fL (9.1-12.4); NEUTROPHILS PERCENT AUTO 80 % (41-73); RDW Coefficient Variation 15.9 % (11.7-14.2); Red Blood Cell Count 2.79 M/mm3 (4.30-5.90); White Blood Cell Count 16.93 K/mm3 (4.00-11.30)
[2021-05-17 08:12] LABS: Platelet Count 1007 K/mm3 (150-400)
[2021-05-17 08:23] LABS: Albumin, Blood 1.7 g/dL (3.4-5.0); Anion Gap 3 mmol/L (6-16); Blood Urea Nitrogen 10 mg/dL (8-24); Bun/Creatinine Ratio 20.3 (12.0-20.0); CO2, Blood 31 mmol/L (21-32); Calcium, Blood 7.7 mg/dL (8.5-10.1); Chloride, Blood 102 mmol/L (98-108); Creatinine, Blood 0.49 mg/dL (0.60-1.20); Glomerular Filtration Rate >60 (60-); Glucose, Blood 100 mg/dL (70-99); Phosphorus, Blood 2.9 mg/dL (2.5-4.9); Sodium, Blood 136 mmol/L (136-145)
--- NOTE | 2021-05-17 12:55 | NUR ---
DR SERNA ASKED I CALL DR MAYFIELD . PT C/O INCREASED PAIN. SOME TEMPS. CALLED AND SPOKE TO HERMELINDA.
--- NOTE | 2021-05-17 13:12 | NUR ---
DR MAYFIELD CALLED BACK. ORDERS CT NECK WITH CONTRAST TOMORROW
--- NOTE | 2021-05-17 17:41 | NUR ---
DR SERNA ASKED DR MAYFIELD TO BE CALLED IN AGAIN, HE ORDERED CT WITH CONTRAST TOMORROW. WILL COME SEE HIM TOMORROW. PT HAS BEEN MORE CALM TODAY. NECK STILL CONTINUES TO DRAIN S/S FLUID. NO TEMPS NOTED TODAY. NO NEW CONCERNS NOTED TODAY. BED IN LOW POSITION, CALL LITE IN REACH, CALLS APPROP
--- NOTE | 2021-05-18 04:19 | NUR ---
PATIENT HAS BEEN PLEASANT AND COOPERATIVE T/O THE SHIFT. SLIGHTLY HYPOTENSIVE AT THIS START OF THE SHIFT BUT ASYMPTOMMATIC. ALL OTHER VITALS STABLE. CONTINUES ON IV ABX WITHOUT S/SX ADVERSE REACTIONS NOTED OR REPORTED. C/O PAIN TO HIS L NECK AT HS AND WAS GIVEN PAIN MEDS AND IV ATIVAN PER PATIENT REQUEST WITH POSITIVE RESULTS. PATIENT HAS BEEN SLEEPING WELL T/O THE NIGHT. CALL LIGHT WITHIN REACH.
[2021-05-18 05:55] LABS: BASOPHILS ABSOLUTE AUTO 0.05 K/mm3 (0.00-0.23); BASOPHILS PERCENT AUTO 0 % (0-2); EOSINOPHILS ABSOLUTE AUTO 0.14 K/mm3 (0.00-0.68); EOSINOPHILS PERCENT AUTO 1 % (0-6); Hematocrit 26.1 % (37.0-53.0); Hemoglobin 8.4 g/dL (13.5-17.5); IMMATURE GRAN ABSOLUTE AUTO 0.32 K/mm3 (0.00-0.10); IMMATURE GRAN PERCENT AUTO 2 % (0-1); LYMPHOCYTES ABSOLUTE AUTO 2.18 K/mm3 (0.84-5.20); LYMPHOCYTES PERCENT AUTO 13 % (21-46); MONOCYTES ABSOLUTE AUTO 1.03 K/mm3 (0.16-1.47); MONOCYTES PERCENT AUTO 6 % (4-13); Mean Corpuscular HGB 28.2 pg (26.0-34.0); Mean Corpuscular HGB Conc 32.2 g/dL (31.5-36.5); Mean Corpuscular Volume 88 fL (80-100); Mean Platelet Volume 8.5 fL (9.1-12.4); NEUTROPHILS ABSOLUTE AUTO 12.67 K/mm3 (1.96-9.15); NEUTROPHILS PERCENT AUTO 77 % (41-73); RDW Coefficient Variation 15.9 % (11.7-14.2); RDW Standard Deviation 50.5 fL (35.1-46.3); Red Blood Cell Count 2.98 M/mm3 (4.30-5.90); White Blood Cell Count 16.39 K/mm3 (4.00-11.30)
[2021-05-18 06:19] LABS: Albumin, Blood 1.8 g/dL (3.4-5.0); Anion Gap 5 mmol/L (6-16); Blood Urea Nitrogen 12 mg/dL (8-24); CO2, Blood 29 mmol/L (21-32); Calcium, Blood 8.3 mg/dL (8.5-10.1); Chloride, Blood 98 mmol/L (98-108); Creatinine, Blood 0.52 mg/dL (0.60-1.20); Glomerular Filtration Rate >60 (60-); Glucose, Blood 101 mg/dL (70-99); Potassium, Blood 4.2 mmol/L (3.5-5.5); Sodium, Blood 132 mmol/L (136-145)
[2021-05-18 06:30] LABS: Platelet Count 1169 K/mm3 (150-400)
--- NOTE | 2021-05-18 17:40 | NUR ---
SHIFT SUMMARY NO ACUTE EVENTS THIS SHIFT PATIENT IS ALERT AND ORIENTATED X2-3. PATIENT FOLLOWS DIRECTIONS AND IS COOPERATIVE WITH CARE. PATIENT IS CONFUSED OCCASIONALLY AND DIRECTABLE. PATIENT HAS HAD A CT SCAN OF NECK TODAY AND PLAN IS FOR [facility] TO CONSULT FOR RESULTS. VITAL SIGNS REVIEWED. PATIENT HAD PAIN OCCASIONAL THAT WAS RELIEVED WITH TRAMADOL. WILL CONTINUE TO MONITOR UNTIL END OF SHIFT.
--- NOTE | 2021-05-18 19:21 | NUR ---
RAPID RESPONSE NOTE ENTERED ROOM, FOUND PATIENT WITH PINPOINT EYES, NONRESPONSIVE. CALLED HOMER HERNANDEZ, TOOK SET OF VITALS, PATIENT WAS UNRESPONSIVE FOR SEVERAL MINUTES. PATIENT SLOWLY RESPONDED TO HIS BASELINE. REVIEWED MRI OF NECK. NO ADDITIONAL ORDERS AT THIS TIME.
--- NOTE | 2021-05-18 21:34 | NUR ---
pt rapid resonse no family noted will see if we can find a decision maker.will review with phsycian on prognosis.
--- NOTE | 2021-05-18 22:05 | NUR ---
[facility] transfer to [place] report to Keenan Walton RN in ER at [facility] completed. PT now NPO Has shower & lt neck chan dressing change complete. PT had cervical MRI today & [facility] transfer required due to results. Covid 19 test done results pending. Had neg covid 19 test 2 days ago. MRSA infection in isolation & report to life Flight attendants. NS running at 100 ml HR & vanco running. Medicated with 50 mcg fentanyl for cervical pain with helpful effect. Personal belongs cell phone & customer agent sent with PT. He declines notification of family or [facility] transfer to [facility] for tx of multiple cervical spine abscess's. Transferred care at 2214 to [facility] Mir Merrill RN
[2021-05-18 22:34] LABS: SARS-Cov-2 (COVID-19) PCR, MMC NEGATIVE (NEGATIVE)
--- NOTE | 2021-05-19 05:00 | NUR ---
reviewed and faxed information to [facility]ie r/t pt's transfer up there
== END 2021-05-18 22:15 | disposition short-term general hospital (02) | DRG 853 ==
LOC: ER 20:12 → ICUE 05-11 02:27 → SURS 05-11 02:27 → PCU 05-11 02:27 → MEDS 05-11 02:27 → SURS 05-11 02:36 → PCU 05-12 04:19 → SURS 05-12 10:53 → ICUE 05-13 02:44 → MEDS 05-15 15:54
PROVIDERS: Emergency Medicine; Family Medicine; Internal Medicine; Internal Medicine Hematology & Oncology; Pharmacist; ADMIT Internal Medicine
PROC: 0J950ZZ Drainage of Left Neck Subcutaneous Tissue and Fascia, Open Approach (ICD-10-PCS; principal; 2021-05-11)
PROC: 0W360ZZ Control Bleeding in Neck, Open Approach (ICD-10-PCS; 2021-05-12)
PROC: 5A09357 Assistance with Respiratory Ventilation, Less than 24 Consecutive Hours, Continuous Positive Airway Pressure (ICD-10-PCS; 2021-05-13)
DX: A41.02 Sepsis due to Methicillin resistant Staphylococcus aureus (principal); J96.01 Acute respiratory failure with hypoxia; J96.02 Acute respiratory failure with hypercapnia; G92 Toxic encephalopathy; G06.1 Intraspinal abscess and granuloma; E87.1 Hypo-osmolality and hyponatremia; N39.0 Urinary tract infection, site not specified; L02.11 Cutaneous abscess of neck; D62 Acute posthemorrhagic anemia; I76 Septic arterial embolism; G95.29 Other cord compression; N17.9 Acute kidney failure, unspecified; Z20.822 Contact with and (suspected) exposure to COVID-19; M46.42 Discitis, unspecified, cervical region; G47.33 Obstructive sleep apnea (adult) (pediatric); G47.31 Primary central sleep apnea; B96.20 Unspecified Escherichia coli [E. coli] as the cause of diseases classified elsewhere; F25.9 Schizoaffective disorder, unspecified; Z59.0 Homelessness; M48.02 Spinal stenosis, cervical region; Z88.8 Allergy status to other drugs, medicaments and biological substances; R19.7 Diarrhea, unspecified; I95.9 Hypotension, unspecified; Z79.899 Other long term (current) drug therapy
CPT/HCPCS: 36415; 36430; 36600; 70450; 70490; 70491; 71045; 71260; 72156; 80053; 80069; 80202; 81001; 81206; 81207; 81270; 82803; 82947; 83605; 83735; 83880; 84484; 85014; 85018; 85025; 85027; 86850; 86900; 86901; 86923; 87040; 87070; 87075; 87077; 87086; 87147; 87186; 87205; 93005; 93010; 93306; 94640; 94660; 94760; 94762; 96365; 97110; 97161; 97162; 99285-25; A9270; A9579; G0480; J0696; J1940; J2060; J2543; J2930; J3010; J3370; J3411; J3475; J7030; J7042; J7050; J7120; P9016; Q9967; U0004

== ENCOUNTER 2021-05-16 17:39 | Emergency (ER) | payer OTHER ==
[~2021-05-16] VITALS: Ht 172.7 cm; Wt 61.2 kg
--- NOTE | 2021-05-16 18:42 | NUR ---
PT LEFT AMA THIS AFT. FOUND DOWN SHORTLY AFTER. BROUGHT BACK TO ROOM PER DR AND FRUIT SHIPPER. UPSET NO DINNER TRAY. EXPLAINED SITUATION, AFTER HOURS OF DINNER. BROUGHT HIM 2 SANDWICHES, STEPHANIO, APPLESAUSE. IS SOME BLEEDING ON NECK DRAIN. OFFERED TO WRAP. REFUSED, WILL CONSIDER AFTER DINNER. LEFT ROOM. BED IN LOW POSITION, CALL LITE IN REACH,
--- NOTE | 2021-05-16 18:50 | NUR ---
CALLED DR SERNA FOR ORDERS ON PT. SHE STATES SHOULD NOT BE NEW ADMIT. CONTINUE OLD. PUT BACK IN ON OLD F #. I EXPLAINED I HAVE NO ACCESS TOTHIS. REQUESTED I CALL GEAR MACHINIST. CALLED GEAR MACHINIST. GAVE INFO. ASKED HER TO CALL AND LET ME KNOW.
== END 2021-05-16 18:02 | disposition other institution (70) ==
LOC: ER 17:39 → MEDS 18:18 → EDBEDREQ 18:30 → MEDS 18:35
DX: A41.02 Sepsis due to Methicillin resistant Staphylococcus aureus (principal); L02.11 Cutaneous abscess of neck; F17.210 Nicotine dependence, cigarettes, uncomplicated; F12.90 Cannabis use, unspecified, uncomplicated; Z88.8 Allergy status to other drugs, medicaments and biological substances
CPT/HCPCS: 99284

== ENCOUNTER 2022-11-09 10:33 | Emergency (ER) | payer OTHER ==
[~2022-11-09] VITALS: Ht 195.6 cm; Wt 81.7 kg
== END 2022-11-09 12:58 | disposition other institution (70) ==
LOC: ER 10:33
DX: H54.62 Unqualified visual loss, left eye, normal vision right eye (principal); F17.210 Nicotine dependence, cigarettes, uncomplicated; Z88.8 Allergy status to other drugs, medicaments and biological substances

== ENCOUNTER 2023-05-21 18:45 | Inpatient (IN) | payer OTHER ==
[~2023-05-21] VITALS: Ht 195.6 cm; Wt 67.5 kg
[2023-05-21 20:24] LABS: BASOPHILS ABSOLUTE AUTO 0.07 K/mm3 (0.00-0.23); BASOPHILS PERCENT AUTO 0 % (0-2); EOSINOPHILS PERCENT AUTO 0 % (0-6); Hematocrit 32.6 % (37.0-53.0); Hemoglobin 11.5 g/dL (13.5-17.5); IMMATURE GRAN ABSOLUTE AUTO 0.24 K/mm3 (0.00-0.10); IMMATURE GRAN PERCENT AUTO 1 % (0-1); LYMPHOCYTES ABSOLUTE AUTO 0.85 K/mm3 (0.84-5.20); LYMPHOCYTES PERCENT AUTO 3 % (21-46); MONOCYTES ABSOLUTE AUTO 1.65 K/mm3 (0.16-1.47); MONOCYTES PERCENT AUTO 7 % (4-13); Mean Corpuscular HGB 28.7 pg (26.0-34.0); Mean Corpuscular HGB Conc 35.3 g/dL (31.5-36.5); Mean Corpuscular Volume 81 fL (80-100); Mean Platelet Volume 8.9 fL (9.1-12.4); NEUTROPHILS PERCENT AUTO 89 % (41-73); Platelet Count 547 K/mm3 (150-400); RDW Coefficient Variation 13.8 % (11.7-14.2); Red Blood Cell Count 4.01 M/mm3 (4.30-5.90); White Blood Cell Count 25.01 K/mm3 (4.00-11.30)
[2023-05-21 21:35] LABS: Albumin, Blood 2.7 g/dL (3.4-5.0); Albumin/Globulin Ratio 0.6 (0.8-1.8); Bilirubin, Total 0.9 mg/dL (0.1-1.0); Bun/Creatinine Ratio 34.3 (12.0-20.0); Calcium, Blood 8.7 mg/dL (8.5-10.1); Creatinine, Blood 0.7 mg/dL (0.60-1.20); Globulin, Blood 4.4 g/dL (2.2-4.0); Potassium, Blood 4.3 mmol/L (3.5-5.5); Thyroid Stimulating Hormone 1.61 uIU/mL (0.360-4.800); Total Protein, Blood 7.1 g/dL (6.4-8.2)
[2023-05-21 22:52] LABS: U Amphetamine Screen DETECTED; U Barbituate Screen Not Detected; U Benzodiazapine Screen Not Detected; U Buprenorphine Screen Not Detected; U Cannabinoids Screen DETECTED; U Cocaine Screen Not Detected; U Methadone Screen Not Detected; U Methamphetamine Screen DETECTED; U Opiates Screen Not Detected; U Oxycodone Screen Not Detected; U Phencyclidine Screen Not Detected; U Propoxyphene Screen Not Detected
[2023-05-21 23:37] VITALS: BP 127/65
[2023-05-22] VITALS (19 sets, daily range): BP systolic 62–111; BP diastolic 43–61
--- NOTE | 2023-05-22 00:58 | NUR ---
PATIENT IS A NEW ADMIT FROM THE ED. AXO X 4 AND SBA TRANSFER FROM [facility] TO BED. 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 IV VANCO INFUSING FROM THE ED. PALACIOS PLACED IN THE ED FOR CHRONIC BUTTOCK WOUND. CONSENT TO PHOTOGRAPH SIGNED AND IN CHART. PICTURES TAKES OF RIGHT INDEX FINGER WITH BONE EXPOSED, OPEN SORE TO LEFT BUTTOCK, AND SCAB ON RIGHT PECTORAL MUSCLE. SURGICAL CONSULT CALLED IN TO DR PICKENS ANSWERING SERVICE. DENIES CHEST PAIN, SOB, AND N/V. NPO FOR POSSIBLE SURGERY. PATIENT RECEIVED BED BATH AND WOUNDS DRESSED. REPORTS PAIN TO LEFT BUTTOCK. ORIENTED TO ROOM AND CALL LIGHT SYSTEM. WCTM.
--- NOTE | 2023-05-22 04:27 | NUR ---
SHIFT SUMMARY PATIENT HAD NO ACUTE CHANGES. AXOX 4 WITH HX SCHIZOAFFECTIVE DISORDER. BEDREST WITH PALACIOS INTACT AND DRAINING TO GRAVITY. REPORTED LEFT BUTTOCK PAIN AND IV FENTANYL 50 MCG GIVEN PER EMAR. PATIENT ABLE TO SLEEP WITH PAIN MANAGEMENT. PIV REMAINS INTACT. NS INFUSING @ 125 mL/HR X 1.5 BAGS. IV ABX INFUSED. TEMPERATURE DECREASED FROM 100.8 DOWN TO 99.8. DENIES CHEST PAIN, SOB, AND N/V. NPO AT THIS TIME. PATIENT RESTLESS AND ANXIOUS AT TIMES. CALL LIGHT IN REACH. BED IN LOWEST POSITION. WILL CONTINUE TO MONITOR UNTIL DAY SHIFT NURSE ASSUMES CARE.
[2023-05-22 08:36] LABS: BASOPHILS ABSOLUTE AUTO 0.11 K/mm3 (0.00-0.23); BASOPHILS PERCENT AUTO 1 % (0-2); EOSINOPHILS ABSOLUTE AUTO 0.05 K/mm3 (0.00-0.68); EOSINOPHILS PERCENT AUTO 0 % (0-6); Hematocrit 29.3 % (37.0-53.0); Hemoglobin 10.3 g/dL (13.5-17.5); IMMATURE GRAN ABSOLUTE AUTO 0.34 K/mm3 (0.00-0.10); IMMATURE GRAN PERCENT AUTO 1 % (0-1); LYMPHOCYTES ABSOLUTE AUTO 1.43 K/mm3 (0.84-5.20); LYMPHOCYTES PERCENT AUTO 6 % (21-46); MONOCYTES ABSOLUTE AUTO 1.71 K/mm3 (0.16-1.47); MONOCYTES PERCENT AUTO 7 % (4-13); Mean Corpuscular HGB 28.8 pg (26.0-34.0); Mean Corpuscular HGB Conc 35.2 g/dL (31.5-36.5); Mean Corpuscular Volume 82 fL (80-100); Mean Platelet Volume 9.2 fL (9.1-12.4); NEUTROPHILS ABSOLUTE AUTO 20.34 K/mm3 (1.96-9.15); NEUTROPHILS PERCENT AUTO 85 % (41-73); Platelet Count 515 K/mm3 (150-400); RDW Coefficient Variation 13.9 % (11.7-14.2); RDW Standard Deviation 41.7 fL (35.1-46.3); Red Blood Cell Count 3.58 M/mm3 (4.30-5.90); White Blood Cell Count 23.98 K/mm3 (4.00-11.30)
[2023-05-22 08:52] LABS: Albumin, Blood 2.2 g/dL (3.4-5.0); Albumin/Globulin Ratio 0.6 (0.8-1.8); Bilirubin, Total 0.9 mg/dL (0.1-1.0); Bun/Creatinine Ratio 22.5 (12.0-20.0); Calcium, Blood 8.3 mg/dL (8.5-10.1); Creatinine, Blood 0.8 mg/dL (0.60-1.20); Potassium, Blood 3.2 mmol/L (3.5-5.5); Total Protein, Blood 6.2 g/dL (6.4-8.2)
--- NOTE | 2023-05-22 12:46 | NUR ---
AWAKENS WHEN SPOKEN TOO, DENIES COMPLANTS, DRESSING INTACT. VSS, REPORT TO DELFINA HERNANDEZ [id number]
--- NOTE | 2023-05-22 14:31 | NUR ---
PT IS IN A DEEP SLEEP AFTER OR. ATTEMPTED TO GIVE PO MEDICATION. PT IS NOT ALERT ENOUGH TO TAKE AT THIS TIME.
--- NOTE | 2023-05-22 16:54 | NUR ---
PT HYPOTENSIVE. ALERT AND ORIENTED. DR. NERI NOTIFIED. BOLUS STARTED.
--- NOTE | 2023-05-22 17:11 | NUR ---
SHIFT SUMMARY PT IS ALERT AND ORIENTED X4. CURRENTLY RECEIVING FLUID BOLUS FOR HYPOTENSION. PO INTAKE IS GOOD. PT DENIES NEED FOR PAIN MEDICATION AT THIS TIME. PT IS PLEASANT AND COOPERATIVE. DENIES CHEST PAIN AND SOB. BED IS IN THE LOWEST POSITION WITH CALL LIGHT IN REACH.
--- NOTE | 2023-05-23 | NUR ---
PT HAS BEEN REFUSING TO ALLOW LAB TO DRAW BLOOD. UNABLE TO OBTAIN THE VANCO TROUGH NEEDED TO ALLOW FOR MED ADMINISTRATION.
--- NOTE | 2023-05-23 01:00 | NUR ---
CALLED LAB- 2 LAB TECHS HAVE NOW BEEN REFUSED BY THE PT. CALLED LAB TO HAVE A TECH COME AND DO THE DRAW, NO OTHER TECHS AVAILABLE AT THIS TIME. PT STILL NOT ABLE TO RECIEVE VANCO THE TROUGH CAN NOT BE DRAWN D/T PT REFUSAL.
[2023-05-23 02:19] VITALS: BP 102/60
--- NOTE | 2023-05-23 02:38 | NUR ---
CALLED LAB TO REQUEST ADDITIONAL TECH TO DO LAB DRAW- A TECH WILL BE SENT NOW. SPOKE TO PT ABOUT THE IMPORTANCE OF GETTING HIS BLOOD DRAW DONE, HE IS AGREEABLE TO IT AT THIS ITME.
[2023-05-23 03:12] LABS: Vancomycin, Trough 14.7 ug/mL (5.0-10.0)
[2023-05-23 03:22] LABS: Bun/Creatinine Ratio 31.9 (12.0-20.0); Calcium, Blood 8.5 mg/dL (8.5-10.1); Creatinine, Blood 0.72 mg/dL (0.60-1.20); Potassium, Blood 4.1 mmol/L (3.5-5.5)
--- NOTE | 2023-05-23 03:24 | NUR ---
CALLED PHARMACY- VANCO TROUGH IS COMPLETED AND RESULT IS IN. PHA AWARE. AWAITING ARRIVAL OF NEXT VANCO DOSE.
--- NOTE | 2023-05-23 07:51 | NUR ---
SHIFT SUMMARY- PT ALERT AND ORIENTED TO SELF, SOME PARANOID DELUSIONS AND FLIGHT OF IDEAS NOTED T/O THE SHIFT. PT HAD I&D OF THE LEFT BUTTOX YESTERDAY. DRESSING BECAME SOILED FROM DRAINAGE AND FELL OFF REDRESSED WITH THE ABD AND UNDERGARMENTS. PT IS COOPERATIVE WITH MOST CARE. IV ACCESS WAS LOST AND NEW ONE PLACED IN THE [place]. PT HAS A TENDANCY TO SWEAT HEAVILY, BED BATH AND LINNEN CHANGE DONE IN THE NIGHT. PT HAS A PALACIOS IN PLACE FOR WOUND HEALING. PT IN BED, BEDSIDE REPORT COMPLETED NO S&S OF DISTRESS.
[2023-05-23 08:07] VITALS: BP 102/55
[2023-05-23 15:54] VITALS: BP 121/70
--- NOTE | 2023-05-23 15:55 | NUR ---
SURGEON STOPPED BY TO TALK TO THE PATIENT. PATIENT WAS VERY IRRITABLE AND VERBALIZING DELUSIONS, AND STATING HE "WANTS TO LEAVE THE HOSPITAL BECAUSE NO ONE WILL TAKE THE DRAIN OUT." REPORTED TO DR NERI.
--- NOTE | 2023-05-23 16:33 | NUR ---
AMA DISCHARGE PATIENT ALERT, SPORADICALLY ORIENTED. TALKED TO HIMSELF T/O SHIFT. COMPLAINED OF "CHIGGERS" AND HAD PAINTED NAIL [place] ON ALL THE SPOTS A REMEDY PRIOR TO HOSPITALIZATION. DECIDED TO LEAVE AMA BECAUSE HE NEEDED A WEED FIX AND HAD TO COLLECT HIS BELONGINGS THAT "ARE STILL ON THE SIDE OF I5" PER PT REPORT. DR NERI DISCUSSED RISKS AND THE NEED TO STAY AN INPATIENT, BUT PATIENT REFUSED. IV AND PALACIOS CATHETER REMOVED. DRAIN FROM I&D LEFT IN. RISKS/BENEFITS REVIEWED WITH PATIENT. AMA FORM SIGNED. PATIENT LEFT BY FOOT AT 1630.
== END 2023-05-23 16:37 | disposition left against medical advice (07) | DRG 872 ==
LOC: ER 18:45 → MEDS 23:10
PROVIDERS: Emergency Medicine; Internal Medicine; ADMIT Internal Medicine
PROC: 3E03329 Introduction of Other Anti-infective into Peripheral Vein, Percutaneous Approach (ICD-10-PCS; principal; 2023-05-21)
PROC: 0H98XZZ Drainage of Buttock Skin, External Approach (ICD-10-PCS; 2023-05-22)
DX: A41.9 Sepsis, unspecified organism (principal); L02.31 Cutaneous abscess of buttock; F25.9 Schizoaffective disorder, unspecified; S61.200A Unspecified open wound of right index finger without damage to nail, initial encounter; F15.10 Other stimulant abuse, uncomplicated; F17.210 Nicotine dependence, cigarettes, uncomplicated; Z59.02 Unsheltered homelessness; Z53.29 Procedure and treatment not carried out because of patient's decision for other reasons; X58.XXXA Exposure to other specified factors, initial encounter
CPT/HCPCS: 36415; 51702; 72193; 73140; 80048; 80053; 80202; 83605; 83880; 84443; 85025; 87070; 87075; 87147; 87205; 93005; 93010; 96365-59; 96366-59; 96367-59; 96372-59; 96375-59; 99285-25; A9270; J0690; J0696; J1100; J1885; J2405; J2543; J2704; J3010; J3370; J7030; J7050; J7120; Q9967

== ENCOUNTER 2023-08-15 22:20 | Emergency (ER) | payer OTHER ==
[~2023-08-15] VITALS: Ht 195.6 cm; Wt 79.4 kg
[2023-08-15 22:32] VITALS: BP 125/76
== END 2023-08-15 23:35 | disposition home or self-care (01) ==
LOC: ER 22:20
DX: S61.200A Unspecified open wound of right index finger without damage to nail, initial encounter (principal); F17.210 Nicotine dependence, cigarettes, uncomplicated; X08.8XXA Exposure to other specified smoke, fire and flames, initial encounter
CPT/HCPCS: 99283

== ENCOUNTER 2023-09-20 10:57 | Emergency (ER) | payer OTHER ==
[~2023-09-20] VITALS: Ht 195.6 cm; Wt 79.4 kg
[2023-09-20 16:44] LABS: Source, Urine Clean Catch
[2023-09-20 16:46] LABS: Appearance, Urine Turbid (Clear); Bilirubin, Urine Neg (Neg); Blood, Urine 4+ (Neg); Color, Urine Yellow (P-Yellow); Glucose Qualitative, Urine Neg (Neg); Ketones, Urine Neg (Neg); Leukocyte Esterase, Urine 3+ (Neg); Nitrite, Urine Neg (Neg); Protein, Urine 3+ (Neg); Specific Gravity, Urine 1.015 (1.003-1.022); Urobilinogen, Urine NORM (Normal)
[2023-09-20 16:54] LABS: Bacteria Many /hpf; Red Blood Cells, Urine 0-2 /hpf (0-2); Squamous Epithelial Cells Not Seen /hpf (Few); White Blood Cells, Urine TNTC /hpf (0-5)
[2023-09-20 17:44] LABS: BASOPHILS ABSOLUTE AUTO 0.04 K/mm3 (0.00-0.23); BASOPHILS PERCENT AUTO 0 % (0-2); EOSINOPHILS ABSOLUTE AUTO 0.05 K/mm3 (0.00-0.68); EOSINOPHILS PERCENT AUTO 0 % (0-6); Hematocrit 32.6 % (37.0-53.0); Hemoglobin 10.8 g/dL (13.5-17.5); IMMATURE GRAN ABSOLUTE AUTO 0.04 K/mm3 (0.00-0.10); IMMATURE GRAN PERCENT AUTO 0 % (0-1); LYMPHOCYTES ABSOLUTE AUTO 1.49 K/mm3 (0.84-5.20); LYMPHOCYTES PERCENT AUTO 13 % (21-46); MONOCYTES ABSOLUTE AUTO 0.84 K/mm3 (0.16-1.47); MONOCYTES PERCENT AUTO 7 % (4-13); Mean Corpuscular HGB 25.5 pg (26.0-34.0); Mean Corpuscular HGB Conc 33.1 g/dL (31.5-36.5); Mean Corpuscular Volume 77 fL (80-100); Mean Platelet Volume 8.3 fL (9.1-12.4); NEUTROPHILS ABSOLUTE AUTO 9.13 K/mm3 (1.96-9.15); NEUTROPHILS PERCENT AUTO 79 % (41-73); Platelet Count 585 K/mm3 (150-400); RDW Coefficient Variation 16.7 % (11.7-14.2); RDW Standard Deviation 46.3 fL (35.1-46.3); Red Blood Cell Count 4.23 M/mm3 (4.30-5.90); White Blood Cell Count 11.59 K/mm3 (4.00-11.30)
[2023-09-20 18:03] LABS: Albumin, Blood 2.7 g/dL (3.4-5.0); Albumin/Globulin Ratio 0.6 (0.8-1.8); Bilirubin, Total 0.2 mg/dL (0.1-1.0); Bun/Creatinine Ratio 20.9 (12.0-20.0); Calcium, Blood 8.7 mg/dL (8.5-10.1); Creatinine, Blood 0.91 mg/dL (0.60-1.20); Globulin, Blood 4.8 g/dL (2.2-4.0); Potassium, Blood 3.4 mmol/L (3.5-5.5); Total Protein, Blood 7.5 g/dL (6.4-8.2)
[2023-09-20] MEDS ORDERED: CEPH500 PO (18:16)
[2023-09-20 18:30] VITALS: BP 122/68
== END 2023-09-20 18:53 | disposition home or self-care (01) ==
LOC: ER 10:57
PROVIDERS: Emergency Medicine
DX: T69.1XXA Chilblains, initial encounter (principal); N39.0 Urinary tract infection, site not specified; F17.210 Nicotine dependence, cigarettes, uncomplicated; Z59.00 Homelessness unspecified; X31.XXXA Exposure to excessive natural cold, initial encounter
CPT/HCPCS: 80053; 81001; 85025; 87086; 96365; 99283-25; J0696; J0713

== ENCOUNTER 2023-10-11 15:54 | Inpatient (IN) | payer OTHER ==
[~2023-10-11] VITALS: Ht 195.6 cm; Wt 68.5 kg
[2023-10-11 16:23] LABS: BASOPHILS ABSOLUTE AUTO 0.04 K/mm3 (0.00-0.23); BASOPHILS PERCENT AUTO 0 % (0-2); EOSINOPHILS ABSOLUTE AUTO 0.03 K/mm3 (0.00-0.68); EOSINOPHILS PERCENT AUTO 0 % (0-6); Hematocrit 41.7 % (37.0-53.0); Hemoglobin 13.1 g/dL (13.5-17.5); IMMATURE GRAN ABSOLUTE AUTO 0.05 K/mm3 (0.00-0.10); IMMATURE GRAN PERCENT AUTO 0 % (0-1); LYMPHOCYTES PERCENT AUTO 12 % (21-46); MONOCYTES ABSOLUTE AUTO 1.05 K/mm3 (0.16-1.47); MONOCYTES PERCENT AUTO 8 % (4-13); Mean Corpuscular HGB 25.3 pg (26.0-34.0); Mean Corpuscular HGB Conc 31.4 g/dL (31.5-36.5); Mean Corpuscular Volume 81 fL (80-100); Mean Platelet Volume 8.8 fL (9.1-12.4); NEUTROPHILS PERCENT AUTO 80 % (41-73); Platelet Count 415 K/mm3 (150-400); RDW Coefficient Variation 19.8 % (11.7-14.2); Red Blood Cell Count 5.18 M/mm3 (4.30-5.90); White Blood Cell Count 13.57 K/mm3 (4.00-11.30)
[2023-10-11 16:48] LABS: Albumin, Blood 3.5 g/dL (3.4-5.0); Albumin/Globulin Ratio 0.8 (0.8-1.8); Bilirubin, Total 0.2 mg/dL (0.1-1.0); Bun/Creatinine Ratio 22.9 (12.0-20.0); Creatinine, Blood 0.88 mg/dL (0.60-1.20); Globulin, Blood 4.6 g/dL (2.2-4.0); Potassium, Blood 3.4 mmol/L (3.5-5.5); Total Protein, Blood 8.1 g/dL (6.4-8.2)
[2023-10-11 19:43] LABS: U Amphetamine Screen DETECTED; U Barbituate Screen Not Detected; U Benzodiazapine Screen Not Detected; U Buprenorphine Screen Not Detected; U Cannabinoids Screen DETECTED; U Cocaine Screen Not Detected; U Methadone Screen Not Detected; U Methamphetamine Screen DETECTED; U Opiates Screen Not Detected; U Oxycodone Screen Not Detected; U Phencyclidine Screen Not Detected
[2023-10-11 19:49] LABS: Source, Urine Clean Catch
[2023-10-11 19:57] LABS: Appearance, Urine Cloudy (Clear); Bilirubin, Urine Neg (Neg); Blood, Urine 4+ (Neg); Color, Urine Yellow (P-Yellow); Glucose Qualitative, Urine Neg (Neg); Ketones, Urine Neg (Neg); Leukocyte Esterase, Urine 3+ (Neg); Nitrite, Urine Pos (Neg); Protein, Urine 3+ (Neg); Urobilinogen, Urine NORM (Normal)
[2023-10-11 20:07] LABS: White Blood Cells, Urine TNTC /hpf (0-5)
[2023-10-11 20:09] LABS: Bacteria Many /hpf; Hyaline Casts 0-2 /lpf (0-2); Red Blood Cells, Urine TNTC /hpf (0-2); Squamous Epithelial Cells Few /hpf (Few)
[2023-10-11 21:27] VITALS: BP 142/74
[2023-10-12 03:34] VITALS: BP 145/79
[2023-10-12 05:17] LABS: Hematocrit 33.6 % (37.0-53.0); Hemoglobin 11.1 g/dL (13.5-17.5); Mean Corpuscular HGB 26.1 pg (26.0-34.0); Mean Corpuscular Volume 79 fL (80-100); Mean Platelet Volume 9.1 fL (9.1-12.4); Platelet Count 266 K/mm3 (150-400); RDW Coefficient Variation 19.9 % (11.7-14.2); RDW Standard Deviation 55.8 fL (35.1-46.3); Red Blood Cell Count 4.26 M/mm3 (4.30-5.90); White Blood Cell Count 11.26 K/mm3 (4.00-11.30)
--- NOTE | 2023-10-12 05:39 | NUR ---
SHIFT SUMMARY NOC ADMIT FROM ED WITH DX OF R FOOT CELLULITIS(PICS IN CHART). PT STARTED ON VANCOMYCIN TO TREAT INFECTION. PT PAIN MANAGED PER EMAR. PT A/O X 4. COMMUNICATES NEEDS APPROPRIATELY. WAS INC OF BM UPON ADMIT TO UNIT. PT RECEIVING NS INFUSION @ 125 ML/HR. PT HAS NOT GOTTEN UP YET AND UNSURE OF AMBULATION ABILITY. PT HAD BOTH X RAY AND ARTERIAL DUPLEX IMAGING PERFORMED @ BEDSIDE, AWAITING RESULTS. PODIATRY CONSULT WAS ORDERED THEN CANCELLED IT IS PENDING RESULTS OF IMAGING. PT IS CURRENTLY RESTING WITH BED IN LOWEST POSITION, AND CALL LIGHT WITHIN REACH.
[2023-10-12 05:54] LABS: Bun/Creatinine Ratio 22.5 (12.0-20.0); Calcium, Blood 8.6 mg/dL (8.5-10.1); Creatinine, Blood 0.8 mg/dL (0.60-1.20); Potassium, Blood 4.1 mmol/L (3.5-5.5)
[2023-10-12 07:50] VITALS: BP 126/64
[2023-10-12 13:21] VITALS: BP 118/85
[2023-10-12 16:20] VITALS: BP 119/62
--- NOTE | 2023-10-12 17:55 | NUR ---
PATIENT LEFT UNIT VIA MEDICAL TRANSPORT TO OUTPATIENT MRI SERVICE AT 1740 SBA TO WHEELCHAIR.
--- NOTE | 2023-10-12 18:03 | NUR ---
SHIFT SUMMARY PATIENT MEDICATED FOR PAIN PER EMAR. HE ALSO HAS A SLIGHT TEMP THIS EVENING. 99.4, TYLENOL GIVEN AND FOLLOW UP WAS 99.6. 1 HOUR LATER TEMP 100.0. HE DOES C/O PAIN EVEN AFTER LAST DOSE OF PERCOCET AND REQUESTED FURTHER PAIN MEDICATION HOWEVER HE WAS TRANSPORTING TO OUTPATIENT MRI [facility] WITH ATIVAN IV ON BOARD AT THAT TIME. WILL MEDICATE FOR PAIN WHEN HE RETURNS. WILL GIVE REPORT TO WELL DRILL OPERATOR ROTARY DRILL RN. BED HAS BEEN IN LOW POSITION, CALL LIGHT IN REACH. PATIENT CALLS APPROPRIATELY.
[2023-10-12 22:09] VITALS: BP 120/87
[2023-10-12 23:03] LABS: Magnesium, Blood 1.9 mg/dL (1.6-2.4); Phosphorus, Blood 3.2 mg/dL (2.5-4.9)
[2023-10-12 23:05] LABS: Vancomycin, Trough 16.7 ug/mL (5.0-10.0)
[2023-10-13 02:24] VITALS: BP 120/66
[2023-10-13 04:47] LABS: BASOPHILS ABSOLUTE AUTO 0.04 K/mm3 (0.00-0.23); BASOPHILS PERCENT AUTO 0 % (0-2); EOSINOPHILS ABSOLUTE AUTO 0.17 K/mm3 (0.00-0.68); EOSINOPHILS PERCENT AUTO 2 % (0-6); Hematocrit 31.1 % (37.0-53.0); Hemoglobin 9.9 g/dL (13.5-17.5); IMMATURE GRAN ABSOLUTE AUTO 0.02 K/mm3 (0.00-0.10); IMMATURE GRAN PERCENT AUTO 0 % (0-1); LYMPHOCYTES ABSOLUTE AUTO 2.13 K/mm3 (0.84-5.20); LYMPHOCYTES PERCENT AUTO 24 % (21-46); MONOCYTES ABSOLUTE AUTO 0.82 K/mm3 (0.16-1.47); MONOCYTES PERCENT AUTO 9 % (4-13); Mean Corpuscular HGB 25.6 pg (26.0-34.0); Mean Corpuscular HGB Conc 31.8 g/dL (31.5-36.5); Mean Corpuscular Volume 81 fL (80-100); Mean Platelet Volume 9.2 fL (9.1-12.4); NEUTROPHILS ABSOLUTE AUTO 5.87 K/mm3 (1.96-9.15); NEUTROPHILS PERCENT AUTO 65 % (41-73); Platelet Count 263 K/mm3 (150-400); RDW Coefficient Variation 20.3 % (11.7-14.2); RDW Standard Deviation 58.8 fL (35.1-46.3); Red Blood Cell Count 3.86 M/mm3 (4.30-5.90); White Blood Cell Count 9.05 K/mm3 (4.00-11.30)
[2023-10-13 05:04] LABS: Magnesium, Blood 1.9 mg/dL (1.6-2.4)
[2023-10-13 05:11] LABS: Albumin, Blood 2.2 g/dL (3.4-5.0); Albumin/Globulin Ratio 0.6 (0.8-1.8); Bilirubin, Total 0.2 mg/dL (0.1-1.0); Bun/Creatinine Ratio 24.8 (12.0-20.0); Calcium, Blood 8.5 mg/dL (8.5-10.1); Creatinine, Blood 1.09 mg/dL (0.60-1.20); Globulin, Blood 3.5 g/dL (2.2-4.0); Phosphorus, Blood 3.6 mg/dL (2.5-4.9); Potassium, Blood 4.3 mmol/L (3.5-5.5)
[2023-10-13 05:12] LABS: Total Protein, Blood 5.7 g/dL (6.4-8.2)
--- NOTE | 2023-10-13 05:31 | NUR ---
SHIFT SUMMARY: PT IS ADMITTED FOR CELLULITIS AND IS FULL CODE. IS ALERT AND ABLE TO MAKE NEEDS KNOWN. ADLs HAVE BEEN 1P STBY THROUGH SHIFT. IV TO LEFT UPPER ARM IS PATENT WITH DRESSING THAT IS CDI. WHEN HE RETURNED FROM MRI HE STATED THAT HE WAS IN SOME PAIN. MRI ALSO REPORTED THAT TOE TO LEFT FOOT HAD STARTED TO OOZE AND BLEED SOME. FOOT WAS WRAPPED WHEN BACK ON THE UNIT. WAS GIVEN PRN PAIN MANAGEMENT X1 DURING SHIFT. ON CONTACT [facility] FOR HX OF MRSA.
[2023-10-13 07:54] VITALS: BP 130/89
[2023-10-13 17:19] VITALS: BP 125/80
--- NOTE | 2023-10-13 17:37 | NUR ---
SHIFT SUMMARY PT A&OX4, VSS, AMB IND W/ SBA, TOLERATING PO, AND VOIDING. ROUNDED THIS AM AND D/C NPO STATUS, NO SURGERY SCHEDULED AT THIS TIME. PT C/O PAIN AND APPEARED TO DISPLAY ANXIETY T/O SHIFT AND MEDICATED PER EMAR. PT APPEARED TO REST PEACEFULLY AND ADMITTED TO IMPROVED PAIN W/ 2 TAB OF PERCOCET AND 1 CAP OF HYDROXYZINE. CALL LIGHT WITHIN REACH AND PT ABLE TO MAKE NEEDS KNOWN.
[2023-10-13 19:04] VITALS: BP 128/87
[2023-10-14 02:43] VITALS: BP 136/76
--- NOTE | 2023-10-14 04:18 | NUR ---
SHIFT SUMMARY: PT IS ADMITTED FOR CELLULITIS AND IS A FULL CODE. IS ALERT AND ABLE TO MAKE NEEDS KNOWN. ADLs HAVE BEEN INDEPENDENT THROUGH MOST OF THE SHIFT. ON CONTACT [facility] FOR HX OF MRSA. HAS BEEN GIVEN PRN PAIN MANAGEMENT IV TO RIGHT ARM IS PATENT AND RUNNING NS @ 125ML/H.
[2023-10-14 05:29] LABS: BASOPHILS ABSOLUTE AUTO 0.04 K/mm3 (0.00-0.23); BASOPHILS PERCENT AUTO 1 % (0-2); EOSINOPHILS ABSOLUTE AUTO 0.23 K/mm3 (0.00-0.68); EOSINOPHILS PERCENT AUTO 3 % (0-6); Hematocrit 34.2 % (37.0-53.0); Hemoglobin 10.6 g/dL (13.5-17.5); IMMATURE GRAN ABSOLUTE AUTO 0.02 K/mm3 (0.00-0.10); IMMATURE GRAN PERCENT AUTO 0 % (0-1); LYMPHOCYTES ABSOLUTE AUTO 2.09 K/mm3 (0.84-5.20); LYMPHOCYTES PERCENT AUTO 28 % (21-46); MONOCYTES ABSOLUTE AUTO 0.57 K/mm3 (0.16-1.47); MONOCYTES PERCENT AUTO 8 % (4-13); Mean Corpuscular HGB 25.5 pg (26.0-34.0); Mean Corpuscular Volume 82 fL (80-100); Mean Platelet Volume 9.3 fL (9.1-12.4); NEUTROPHILS ABSOLUTE AUTO 4.65 K/mm3 (1.96-9.15); NEUTROPHILS PERCENT AUTO 61 % (41-73); Platelet Count 281 K/mm3 (150-400); RDW Coefficient Variation 20.5 % (11.7-14.2); RDW Standard Deviation 61.4 fL (35.1-46.3); Red Blood Cell Count 4.16 M/mm3 (4.30-5.90)
[2023-10-14 05:58] LABS: Albumin, Blood 2.4 g/dL (3.4-5.0); Albumin/Globulin Ratio 0.6 (0.8-1.8); Bilirubin, Total 0.2 mg/dL (0.1-1.0); Bun/Creatinine Ratio 21.3 (12.0-20.0); Calcium, Blood 8.6 mg/dL (8.5-10.1); Creatinine, Blood 0.94 mg/dL (0.60-1.20); Globulin, Blood 3.9 g/dL (2.2-4.0); Magnesium, Blood 1.9 mg/dL (1.6-2.4); Potassium, Blood 4.4 mmol/L (3.5-5.5); Total Protein, Blood 6.3 g/dL (6.4-8.2)
[2023-10-14 07:52] VITALS: BP 141/87
[2023-10-14 12:18] LABS: Vancomycin, Trough 19.7 ug/mL (5.0-10.0)
[2023-10-14 17:04] VITALS: BP 130/79
--- NOTE | 2023-10-14 17:38 | NUR ---
DAYSHIFT SUMMARY Patient alert & oriented x4, reports severe pain in BLE. Bilat feet red, discoloration of toes. Math Instructor assessed patient, and ordered repeat CT of left & right foot. IV ABX administred, PO percocet & dilaudid given for pain. Vitals stable, afebrile. Patient resting comfortably in bed. Awaiting CT results for podiatry to review.
[2023-10-14 19:54] VITALS: BP 139/92
[2023-10-15 03:04] VITALS: BP 116/71
[2023-10-15 04:41] LABS: BASOPHILS ABSOLUTE AUTO 0.07 K/mm3 (0.00-0.23); BASOPHILS PERCENT AUTO 1 % (0-2); EOSINOPHILS ABSOLUTE AUTO 0.25 K/mm3 (0.00-0.68); EOSINOPHILS PERCENT AUTO 3 % (0-6); Hematocrit 31.2 % (37.0-53.0); Hemoglobin 10.1 g/dL (13.5-17.5); IMMATURE GRAN ABSOLUTE AUTO 0.02 K/mm3 (0.00-0.10); IMMATURE GRAN PERCENT AUTO 0 % (0-1); LYMPHOCYTES ABSOLUTE AUTO 2.02 K/mm3 (0.84-5.20); LYMPHOCYTES PERCENT AUTO 25 % (21-46); MONOCYTES ABSOLUTE AUTO 0.76 K/mm3 (0.16-1.47); MONOCYTES PERCENT AUTO 9 % (4-13); Mean Corpuscular HGB 25.8 pg (26.0-34.0); Mean Corpuscular HGB Conc 32.4 g/dL (31.5-36.5); Mean Corpuscular Volume 80 fL (80-100); Mean Platelet Volume 8.8 fL (9.1-12.4); NEUTROPHILS ABSOLUTE AUTO 4.97 K/mm3 (1.96-9.15); NEUTROPHILS PERCENT AUTO 61 % (41-73); Platelet Count 285 K/mm3 (150-400); RDW Coefficient Variation 20.4 % (11.7-14.2); RDW Standard Deviation 58.6 fL (35.1-46.3); Red Blood Cell Count 3.91 M/mm3 (4.30-5.90); White Blood Cell Count 8.09 K/mm3 (4.00-11.30)
[2023-10-15 05:14] LABS: Bun/Creatinine Ratio 17.8 (12.0-20.0); Calcium, Blood 8.8 mg/dL (8.5-10.1); Creatinine, Blood 1.18 mg/dL (0.60-1.20); Phosphorus, Blood 4.6 mg/dL (2.5-4.9); Potassium, Blood 4.5 mmol/L (3.5-5.5)
--- NOTE | 2023-10-15 07:26 | NUR ---
PATIENT IS ALERT AND ORIENTED. WITH PIV ON LEFT FA. ON CONTACT PRECAUTION DUE TO MRSA. ON ROOM AIR. COMPLAINTS OF PAIN, MEDICATED ACCORDINGLY. IV OUT AND REINSERTED ON RIGHT FA. NEEDS ATTENDED. WILL CONTINUE TO MONITOR
[2023-10-15 07:50] VITALS: BP 120/75
[2023-10-15 11:51] LABS: Vancomycin, Trough 23.2 ug/mL (5.0-10.0)
[2023-10-15 16:40] VITALS: BP 130/80
--- NOTE | 2023-10-15 17:09 | NUR ---
DAYSHIFT SUMMARY Patient alert & oriented x4. Patient continues to report severe pain in bilateral feet. Feet look like they are improving, feet less swollen, no redness noted on dorsum of foot. Bilat toes are still red/black discolored. IV ABX administred. Patient declined Lovenox, prophylaxsis for DVT, educated patient on medication. PRN pain medications, adjusted. Will continue plan of care, Podiatry will reassess on tuesday.
[2023-10-15 19:36] VITALS: BP 126/92
[2023-10-16 04:02] VITALS: BP 120/81
[2023-10-16 07:36] VITALS: BP 127/78
--- NOTE | 2023-10-16 11:39 | NUR ---
PT REQUESTING DOUBLE PORTIONS AT MEALS. CALL TO ADA IN DIETARY WHO WILL ENSURE THIS IS BEING SENT.
[2023-10-16 16:04] VITALS: BP 146/77
[2023-10-16 19:26] VITALS: BP 136/78
--- NOTE | 2023-10-16 19:32 | NUR ---
DAY SHIFT SUMMARY: A&Ox4. PLEASANT AND COOPERATIVE WITH CARE. CALLS APPROPRIATELY AND ABLE TO COMMUNICATE NEEDS EFFECTIVELY. GRANDIOSE DELUSIONS AND AUDITORY HALLUCINATIONS. RECEIVING OXYCODONE-APAP 10/325 Q6H PRN BILATERAL FOOT PAIN SECONDARY TO GANGRENOUS WOUNDS, THOUGH HE AMBULATES INDEPENDENTLY TO BATHROOM AND REQUESTED TO WALK THE HALLWAYS TODAY. ANTICIPATE SECOND CONSULT WITH DR. HONEYCUTT TOMORROW TO DETERMINE PLAN. INCREASED HUNGER LIKELY RELATED TO SMOKING AND DRUG CESSATION. REFUSED ANTICOAGULANT THERAPY AND STOOL SOFTENER. CONTINENT x2; LARGE BM TODAY, USES BEDSIDE URINAL. 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 REPORT TO ONCOMING RN.
[2023-10-17 05:25] VITALS: BP 114/72
[2023-10-17 05:45] LABS: Vancomycin, Trough 16.2 ug/mL (5.0-10.0)
--- NOTE | 2023-10-17 08:13 | NUR ---
SUMMARY: PT A/OX4, CALLS APPROPRIATELY TO SPECIFY NEEDS AND IS PLEASANT AND COOPERATIVE W/CARE. HE'S INDPENDENT IN ROOM DISPITE SOME DECREASED ROM FROM BASELINE FROM BILAT FEET FROSTBITE W/WOUNDS AND INTERMITTENT PAIN. PT WAS MEDICATED W/OXICODONE PRN FOR TOLERABLE RELIEF. IV ABX RECIEVED THEN SL'D. HE USED URINAL AD GERRY AND DENIED COMPLAINTS. DAY RN OBSERVED SCHIZOPHRENIC BEHAVIOR BUT NO GRANDIOSE IDEOLOGY, HALLUCINATIONS OR PARANOIA OBSERVED THIS SHIFT DESCRIBED. NO ACUTE CHANGES, VSS/AFEBRILE. WCTM AND REPORT TO DAY RN.
[2023-10-17 08:14] VITALS: BP 127/70
[2023-10-17 16:13] VITALS: BP 136/81
--- NOTE | 2023-10-17 17:16 | NUR ---
SUMMARY- PT A/O X4, UP INDEPENDANT IN THE ROOM EVEN THOUGH HE HAS SOME DISCOMFORT IN HIS TOES. L 2ND METATARSIL IS BLACK, R GREAT TOE DARK NECROTIC AREAS AND SCATTERED DARKNESS TO R TOES. DR HONEYCUTT HERE AROUND 1700, EVALUATED FEET, STATES TOES LOOK TO BE HEALING EXCEPT L 2ND MET, LIKELY AMPUTATION IN ABOUT 2 WEEKS. PT'S PAIN CONTROLLED WITH OXYCODONE. DR PAYNE INCREASED FREQ TO Q4, PT BEGAIN HAVING PAIN BEFORE 6 HOURS CAME AROUND. PT TOLERATING FOOD AND FLUIDS. EATING LOTS OF SNACKS IN BETWEEN MEALS. VOIDING WITHOUT DIFFICULTY. WILL REPORT TO NOC RN
[2023-10-17 19:46] VITALS: BP 120/69
[2023-10-18 05:06] VITALS: BP 117/83
--- NOTE | 2023-10-18 05:22 | NUR ---
Shift Summary Patient was awake and alert at the beginning ot the shift. Respirations regular and unalbored. Lung sounds clear. Skin warm and dry. Patient's left 2nd metatarcil is black and necrotic. He has scattered dark areas on his toes and feet. Patient received pain medication twice on this shift. Pain is controlled and patient sleeps soundly between doses. Appetite is good. Patient is able to ambulate independently.
[2023-10-18 05:37] LABS: BASOPHILS ABSOLUTE AUTO 0.08 K/mm3 (0.00-0.23); BASOPHILS PERCENT AUTO 1 % (0-2); EOSINOPHILS ABSOLUTE AUTO 0.39 K/mm3 (0.00-0.68); EOSINOPHILS PERCENT AUTO 5 % (0-6); Hematocrit 32.2 % (37.0-53.0); Hemoglobin 10.1 g/dL (13.5-17.5); IMMATURE GRAN ABSOLUTE AUTO 0.04 K/mm3 (0.00-0.10); IMMATURE GRAN PERCENT AUTO 1 % (0-1); LYMPHOCYTES ABSOLUTE AUTO 1.95 K/mm3 (0.84-5.20); LYMPHOCYTES PERCENT AUTO 25 % (21-46); MONOCYTES ABSOLUTE AUTO 0.61 K/mm3 (0.16-1.47); MONOCYTES PERCENT AUTO 8 % (4-13); Mean Corpuscular HGB 25.6 pg (26.0-34.0); Mean Corpuscular HGB Conc 31.4 g/dL (31.5-36.5); Mean Corpuscular Volume 82 fL (80-100); Mean Platelet Volume 8.8 fL (9.1-12.4); NEUTROPHILS ABSOLUTE AUTO 4.62 K/mm3 (1.96-9.15); NEUTROPHILS PERCENT AUTO 60 % (41-73); Platelet Count 361 K/mm3 (150-400); RDW Coefficient Variation 20.5 % (11.7-14.2); RDW Standard Deviation 61.1 fL (35.1-46.3); Red Blood Cell Count 3.94 M/mm3 (4.30-5.90); White Blood Cell Count 7.69 K/mm3 (4.00-11.30)
[2023-10-18 06:06] LABS: Bun/Creatinine Ratio 17.2 (12.0-20.0); Calcium, Blood 8.7 mg/dL (8.5-10.1); Creatinine, Blood 1.28 mg/dL (0.60-1.20); Potassium, Blood 4.4 mmol/L (3.5-5.5)
[2023-10-18 09:05] VITALS: BP 113/74
[2023-10-18 15:16] VITALS: BP 124/70
[2023-10-18 18:31] LABS: Vancomycin, Trough 15.8 ug/mL (5.0-10.0)
[2023-10-18 20:33] VITALS: BP 124/80
--- NOTE | 2023-10-18 20:46 | NUR ---
REWRITE FOR 10/17 1714 SUMMARY- PT A/O X4, UP INDEPENDANT IN THE ROOM EVEN THOUGH HE HAS SOME DISCOMFORT IN HIS FEET. RIGHT 4TH TOE BLACK HARD ESCHAR AND DR YINKA RAMIREZ WILL NEED AMPUTATION IN A WEEK OR [address]. [address] HONEYCUTT HERE TO EVAL FEET AROUND 1700. PT'S PAIN CONTROLLED WITH OXYCODONE, DR PAYNE INCREASED FREQ TO Q4, PILLS NOT HOLDING PAIN FOR 6 HOURS. PT TOLERATING FOOD AND FLUIDS AND EATING LOTS OF SUGARY SNACKS IN BETWEEN. TRIED TO EDUCATE IN REGAURDS TO DECREASING SUGAR INTAKE, BUT PT CONT TO ASK FOR PEPSI AND ICE CREAM. PT VOIDS WITHOUD DIFFICULTY. WILL REPORT TO NOC RN
--- NOTE | 2023-10-18 20:56 | NUR ---
SUMMARY- PT A/O X4, INDEPENDANT IN ROOM. TOLERATING FOOD AND FLUID. PAIN CONTROLLED WITH OXY 7.5MG Q4 HR PRN. DR HONEYCUTT TO SEE PT IN 1-2 WEEKS FOR PLAN TO LIKELY AMBUTATE R 4TH TOE. IN THE MEANTIME PLAN FOR SNF UNTIL SURGERY CAN TAKE PLACE. PT TOLERATING FOOD AND FLUIDS. PLEASANT AND COOPERATIVE, IN GOOD SPIRITS. GLAD HIS FEET ARE HEALING BETTER THAN EXPECTED. REORTED TO MIHAI PÉREZ RN
[2023-10-19 03:34] VITALS: BP 124/82
--- NOTE | 2023-10-19 04:34 | NUR ---
SHIFT SUMMARY PATIENT HAD NO ACUTE CHANGES. AXOX 4 AND INDEPENDENT IN ROOM. REPORTED RIGHT FOOT PAIN X TWO AND PERCOCET GIVEN PER EMAR. VSS/AFEBRILE. DENIES CHEST PAIN, SOB, AND N/V. PLEASANT AND COOPERATIVE. CALL LIGHT IN REACH. BED IN LOWEST POSITION. WILL CONTINUE TO MONITOR UNTIL DAY SHIFT NURSE ASSUMES CARE.
[2023-10-19 08:12] VITALS: BP 115/72
[2023-10-19 17:05] VITALS: BP 125/69
--- NOTE | 2023-10-19 18:28 | NUR ---
SHIFT SUMMARY NO ACUTE CHANGES THIS SHIFT. DISCHARGE PENDING SNF APPROVAL, SEE CARE COORDINATION NOTES. CALL LIGHT WITHIN REACH AND PT ABLE TO MAKE NEEDS KNOWN.
[2023-10-19 19:26] VITALS: BP 136/74
[2023-10-20 02:58] VITALS: BP 131/83
--- NOTE | 2023-10-20 03:29 | NUR ---
END OF SHIFT SUMMARY PT A&O x4, VSS, AFEBRILE, PT ON RA. PT KIND AND COOPERATIVE WITH CARE PROVIDED. PT C/O PAIN TO R AND L FOOT PAIN. PAIN MANAGED WITH PRN PERCOCET AND VISTARIL FOR ANXIETY. PRN MEDICATION EFFECTIVE, PT WAS ABLE TO GO BACK TO SLEEP AFTER RECEIVING THEM. PT REFUSED CONTINUOUS IV FLUIDS. ATTENDING PHYSICIAN DR. FREIRE, REVIEWED RECENT LAB RESULTS AND GAVE VERBAL ORDER TO D/C THEM. IV TO R HAND, S. LOCKED, IV ABX SCHEDULED THIS MORNING. PT STATED THAT HE IS FEELING BETTER AND CAN SEE AN IMPROVEMENT TO R FOOT. CALL LIGHT WITHIN REACH, WCTM.
[2023-10-20 07:28] VITALS: BP 131/69
[2023-10-20 17:25] VITALS: BP 123/85
--- NOTE | 2023-10-20 17:42 | NUR ---
SHIFT SUMMARY DENTAL HYGIENIST CONSULT ORDERED. NO OTHER ACUTE CHANGES THIS SHIFT. CALL LIGHT WITHIN REACH AND PT ABLE TO MAKE NEEDS KNOWN.
[2023-10-20 19:31] VITALS: BP 117/80
[2023-10-21 00:09] LABS: Vancomycin, Trough 15.5 ug/mL (5.0-10.0)
[2023-10-21 03:24] VITALS: BP 131/83
--- NOTE | 2023-10-21 04:11 | NUR ---
END OF SHIFT SUMMARY PT A&O x4, VSS, AFEBRILE. PT SLEPT WELL OVERNIGHT, PT ABLE TO MAKE NEEDS KNOWN. PT C/O PAIN TO R AND L FEET; PAIN MANAGED WITH PRN PERCOCET x2, WITH GOOD RESULTS. PT DESCRIBED HIS PAIN/DISCOMFORT PINS AND NEEDLE SENSATION WHICH IS NEW. PT RECEIVED IV ABX. PT UP AD GERRY, INDEPENDENT WITH ADL's. PT HAS HAD SOME EPISODES OF INCONTINENCE WITH URINE. EDUCATION ON GOOD HYGIENE PROVIDED. PT ADMITTED FOR CELLULITIS TO E. EDEMA AND REDNESS HAS IMPROVED PER PT. PT CALLS APPROPRIATELY FOR SNACKS AND FLUIDS. CALL LIGHT WITHIN REACH, WCTM.
[2023-10-21 07:29] VITALS: BP 118/73
--- NOTE | 2023-10-21 08:29 | NUR ---
pt laying in bed awake a/ox4, pleasant and cooperative with care, follows commands well, reports 9/10 pain to feet, marni right, lungs are clrear t/o, resp even and unlabored, no cough noted, hrr, no edema noted, ppp+2, cap refill <3 sec, vs stable, afebrile, piv to r wrist, site is clear and patent, btx4, abd flat soft nontender, voids without diff, reports reg bm's and declined stool softener, skin is c/w/d except his toes on both feet some are black, maew, evens, call light in reach.
--- NOTE | 2023-10-21 13:18 | NUR ---
pt is concerned about not enough pain meds, states the 5mg of oxy isn't doing anything, no furhter changes, report given to Colette HERNANDEZ, call light in reach.
[2023-10-21 16:21] VITALS: BP 131/89
--- NOTE | 2023-10-21 17:52 | NUR ---
SUMMARY- AAOX4, SBA. PT STATES HIS TOE PAIN IS NOT WELL CONTROLLED WITH CURRENT EMAR MEDS. RN'S FLACC ASSESSMENT AND OBSERVATION WOULD SUGGEST PT'S PAIN IS WELL CONTROLLED. PT IS CALM AND COOPERATIVE WITH CARE.
[2023-10-21 19:53] VITALS: BP 112/75
[2023-10-22 03:45] VITALS: BP 117/70
--- NOTE | 2023-10-22 04:15 | NUR ---
SHIFT SUMMARY PT A&O X4, COOPERATIVE WITH CARE. PT IS CONTINENT AND USING URINAL INDEPENDENT. SBA IF GETTING OOB. PT COMPLAINTS OF KALEB FEET PAIN, MEDICATED PER EMAR. PT STATES HIS PAIN MEDICINE WAS DECREASED AND IS NOT EFFECTIVE. PT IS HAS NOT DISPLAYED SIGNS OF UNCONTROLLED PAIN. PT IS IN BED SLEEPING. BED IN LOWEST POSIITON WITH CALL LIGHT WITHIN REACH. PT CALLS APPROPRAIETLY FOR NEEDS. WILL CONTINUE TO MONITOR.
[2023-10-22 07:31] VITALS: BP 119/72
--- NOTE | 2023-10-22 18:12 | NUR ---
SHIFT SUMMARY: PT IS A 53 YEAR OLD MALE HERE FOR FROSTBITE/NECROSIS OF TOES ON R/L FEET. HIS 4TH TOE ON HIS RIGHT FOOT IS FULLY NECROTIC AND IS IN NEED OF AMPUATION DISCUSSED WITH DR. GOLDSMITH. WE ARE PENDING PODIATRY TO DETERMINE PLAN; INPATIENT VS OUTPATIENT. TOES ON L FOOT HAVE SCATTERED AREAS OF NECROSIS, BUT NOT SEVERE AT THE 4TH TOE ON HIS RIGHT FOOT. HE CONTINUES TO COMPLAIN OF PAIN IN HIS FEET, BUT SEEMING TO BECOME MORE MANAGEABLE/TOLERABLE DUE TO LONGER DURATIONS OF PAIN MEDICATION NEEDED. HE IS PLEASANT AND COOPERATIVE WITH CARE AND RECEIVING IV ANTIBIOTIC TREATMENT. HE IS IN BED, MAKES HIS NEEDS KNOWN WITH USE OF THE CALL LIGHT, NO SIGNS OR SYMPTOMS OF DISTRESS. HOMELESS: FACILITY PLACEMENT VS. HOMELESSNESS PLAN OF CARE ONGOING.
[2023-10-22 19:42] VITALS: BP 112/72
[2023-10-23 03:51] VITALS: BP 115/65
--- NOTE | 2023-10-23 04:37 | NUR ---
SHIFT SUMMARY PT A&O X4. CONTACT PRECAUTIONS DUE TO HISTORY OF MRSA. PT CONT/INCONTINENT OF URINE. SBA TO BATHROOM. PT WANTED TO CHANGE HIS OWN GOWN AND BREIF, PROVIDED THE PT WITH CLEAN ONES. PT UPSET UPON MY ARRIVAL. PT COOPERATIVE WITH ASSESSMENT BUT STATED HE WAS "REFUSING TO TAKE ALL MEDICATIONS DUE TO DECISIONS MADE BY PROVIDERS. PT SAID HE "WILL TAKE IV ABX ONLY". PT STATES HE HAS PAIN BUT REFUSED ANY PAIN MEDICATIONS. PT IS UPSET THAT THE DOCTOR DECREASED HIS PAIN MEDICATION DOSAGE. PT DOES NOT SEEM TO BE IN IMMENSE PAIN. HE HAS SLEPT MUCH OF THE SHIFT. PT CALLS APPROPRIATELY FOR NEEDS AND CALL LIGHT WITHIN REACH. WILL CONTINUE TO MONITOR UNTIL END OF SHIFT.
[2023-10-23 07:22] VITALS: BP 115/71
[2023-10-23 08:39] LABS: Bun/Creatinine Ratio 27.4 (12.0-20.0); Calcium, Blood 9.1 mg/dL (8.5-10.1); Creatinine, Blood 1.13 mg/dL (0.60-1.20); Potassium, Blood 4.7 mmol/L (3.5-5.5)
[2023-10-23 15:04] VITALS: BP 99/78
--- NOTE | 2023-10-23 15:59 | NUR ---
SHIFT SUMMARY: PATIENT REFUSED TO TAKE HIS 0900 SCHEDULED MEDS PER EMAR EXCEPT IV ABX. PER PATIENT "DR'S MADE CHANGES c MY PAIN MEDS AND GABAPENTIN. I'M NOT TAKING ANY THING EXCEPT MY ANTIBIOTIC." PATIENT ALSO REPORTS PAIN 5-9/10 TO FEET, OFFERED PAIN MEDS, BUT DECLINE WELL. USE THERAPIUTIC COMMUNICATIONS EDUCATE PATIENT THE RISK AND BINIFITS OF REFUSING THE MEDS. PATIENT VERBALIZED UNDERSTANDING AND STATED " I HAVE BEEN USING [facility] SINCE I WAS 9 YO MY BROTHER GIVE IT TO ME USUALLY FENTANYL BUT IT'S DIFFERENT [facility]. I DON'T LIKE THIER CHANGING MY MEDICATION." AN HOUR LATER, PATIENT CALLED AND STATED "DR. GOLDSMITH WAS HERE AFTER TALKING TO HER SHE EXPLAIN TO ME THE CHANGES WAS MADE AND THE REASON BEHIND IT. I WOULD LIKE TO TAKE MY MEDICATION NOW THAT I REFUSED EARLIER AND ALSO MY PAIN MEDICATION IF YOU DON'T MIND." PATIENT RECEIVED ALL SCHEDULED MEDS PER EMAR THIS SHIFT. PATIENT A/OX4, PLEASANT AND COOPERATIVE c CARE. PATIENT HAS EXCELLENT APPETITE; ATE 100% HIS MEALS AND SNACKS T/O SHIFT. PATIENT HAD ECHO DONE TODAY c RESULT EF 60-65%. PATIENT IS CONTINENCE OF BOWELS/BLADDER AND HAS BEEN AMBULATING TO BATHROOM INDEPENDENTLY. PATIENT HAS NO COMPLAINTS OR DENIES NEW CONCERNED THIS SHIFT. VITAL SIGNS REVIEWED. PIV TO R WRIST SALINE LOCKED. CALL LIGHT IN REACH.
[2023-10-23 20:10] VITALS: BP 119/72
[2023-10-24 05:02] LABS: Hematocrit 31.3 % (37.0-53.0); Mean Corpuscular HGB 25.8 pg (26.0-34.0); Mean Corpuscular HGB Conc 31.9 g/dL (31.5-36.5); Mean Corpuscular Volume 81 fL (80-100); Mean Platelet Volume 8.4 fL (9.1-12.4); Platelet Count 527 K/mm3 (150-400); RDW Coefficient Variation 21.5 % (11.7-14.2); RDW Standard Deviation 63.1 fL (35.1-46.3); Red Blood Cell Count 3.87 M/mm3 (4.30-5.90); White Blood Cell Count 9.79 K/mm3 (4.00-11.30)
[2023-10-24 05:33] LABS: Bun/Creatinine Ratio 27.5 (12.0-20.0); Calcium, Blood 8.8 mg/dL (8.5-10.1); Creatinine, Blood 1.31 mg/dL (0.60-1.20); Potassium, Blood 4.4 mmol/L (3.5-5.5)
--- NOTE | 2023-10-24 07:35 | NUR ---
SHIFT SUMMARY PT A&O X4, COOPERATIVE WITH CARE. PT SBA WITH AMBULATION. PT COMPLAINTS OF KALEB FEET PAIN PRIMARILY THE RIGHT SIDE, SEE EMAR. PT TO HAVE POSSIBLE EVALUATION BY PODIATRY TODAY. NO ACUTE CHANGES THIS SHIFT. BED KEPT IN LOWEST POSITION WITH CALL LIGHT WITHIN REACH.
[2023-10-24 08:04] VITALS: BP 104/64
[2023-10-24 15:57] VITALS: BP 108/86
--- NOTE | 2023-10-24 16:35 | NUR ---
SHIFT SUMMARY Pt remains A&Ox3 this shift. VSS. Resp even nonlabored on RA. Ambulates to bathroom. Voiding without difficulty. 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 Hygenist has made dental outpt appt for Thur. Dr. Martines aware, pt already on antibiotic.
[2023-10-24 19:49] VITALS: BP 130/75
[2023-10-25 02:40] VITALS: BP 121/82
--- NOTE | 2023-10-25 04:52 | NUR ---
SHIFT SUMMARY ADMITTED FOR RLE CELLULITIS. FULL CODE. ANTIB RX ARE SCHEDULED. PLAN IS FOR DC TODAY. DR. HONEYCUTT IS PODIATRY CONSULT. PLAN IS FOR OUTPT PODIATRY CONSULT. ON RA. CONTINENT. A&O X3. REGULAR DIET. HE IS INDEPENDENT.
--- NOTE | 2023-10-25 05:56 | NUR ---
PT LEFT AMA RISKS OF LEAVING AMA EXPLAINED TO PT. BENEFITS OF STAYING EXPLAINED. PT REFUSED TO STAY. INFORMED CHARGE. INFORMED HOSPITALIST. IV REMOVED. PERSONAL POSSESSIONS WITH PT.
== END 2023-10-25 05:45 | disposition left against medical advice (07) | DRG 922 ==
LOC: ER 15:54 → MEDS 19:56
PROVIDERS: Emergency Medicine; Hospitalist; Internal Medicine; Nurse Practitioner Acute Care; Pharmacist Pharmacotherapy; ADMIT Internal Medicine
DX: T34.831A Frostbite with tissue necrosis of right toe(s), initial encounter (principal); N17.0 Acute kidney failure with tubular necrosis; L03.115 Cellulitis of right lower limb; R78.81 Bacteremia; N39.0 Urinary tract infection, site not specified; Z59.00 Homelessness unspecified; B96.89 Other specified bacterial agents as the cause of diseases classified elsewhere; B96.20 Unspecified Escherichia coli [E. coli] as the cause of diseases classified elsewhere; T33.822A Superficial frostbite of left foot, initial encounter; F25.9 Schizoaffective disorder, unspecified; F15.90 Other stimulant use, unspecified, uncomplicated; F12.90 Cannabis use, unspecified, uncomplicated; G62.9 Polyneuropathy, unspecified; T36.8X5A Adverse effect of other systemic antibiotics, initial encounter; F17.210 Nicotine dependence, cigarettes, uncomplicated; E87.6 Hypokalemia; Z86.14 Personal history of Methicillin resistant Staphylococcus aureus infection
CPT/HCPCS: 36415; 73660; 73700; 73701; 80048; 80053; 80202; 81001; 82565; 83605; 83735; 84100; 85025; 85027; 85651; 86140; 87040; 87077; 87086; 87186; 93306; 93926; 96361; 96365; 96375; 99285-25; A9270; J0690; J0696; J1650; J2060; J2270; J3010; J3370; J7030; J7050; Q0177; Q9967

== ENCOUNTER 2023-10-25 15:35 | Emergency (ER) | payer OTHER ==
[~2023-10-25] VITALS: Ht 195.6 cm; Wt 79.4 kg
[2023-10-25 15:39] VITALS: BP 127/79
== END 2023-10-25 16:24 | disposition home or self-care (01) ==
LOC: ER 15:35
DX: Z48.89 Encounter for other specified surgical aftercare (principal); F17.210 Nicotine dependence, cigarettes, uncomplicated; F25.9 Schizoaffective disorder, unspecified
CPT/HCPCS: 99283; A9270

== ENCOUNTER 2024-09-07 16:30 | Emergency (ER) | payer OTHER ==
[~2024-09-07] VITALS: Ht 198.1 cm; Wt 65.8 kg
[2024-09-07] MEDS ORDERED: Ondansetron HCl 2 MG / ML 2ML Vial IV ONE (17:45)
[2024-09-07 18:06] LABS: Source, Urine Clean Catch
[2024-09-07 18:13] LABS: Appearance, Urine Turbid (Clear); Bilirubin, Urine Neg (Neg); Blood, Urine 4+ (Neg); Glucose Qualitative, Urine Neg (Neg); Ketones, Urine Neg (Neg); Leukocyte Esterase, Urine 3+ (Neg); Nitrite, Urine Pos (Neg); Protein, Urine 3+ (Neg); Specific Gravity, Urine 1.015 (1.003-1.022); Urobilinogen, Urine NORM (Normal)
[2024-09-07 18:29] LABS: BASOPHILS ABSOLUTE AUTO 0.02 K/mm3 (0.00-0.23); BASOPHILS PERCENT AUTO 0 % (0-2); EOSINOPHILS ABSOLUTE AUTO 0.06 K/mm3 (0.00-0.68); EOSINOPHILS PERCENT AUTO 1 % (0-6); Hematocrit 36.6 % (37.0-53.0); IMMATURE GRAN ABSOLUTE AUTO 0.02 K/mm3 (0.00-0.10); IMMATURE GRAN PERCENT AUTO 0 % (0-1); LYMPHOCYTES ABSOLUTE AUTO 1.41 K/mm3 (0.84-5.20); LYMPHOCYTES PERCENT AUTO 17 % (21-46); MONOCYTES PERCENT AUTO 9 % (4-13); Mean Corpuscular HGB 26.5 pg (26.0-34.0); Mean Corpuscular HGB Conc 32.8 g/dL (31.5-36.5); Mean Corpuscular Volume 81 fL (80-100); Mean Platelet Volume 9.2 fL (9.1-12.4); NEUTROPHILS ABSOLUTE AUTO 6.07 K/mm3 (1.96-9.15); NEUTROPHILS PERCENT AUTO 73 % (41-73); Platelet Count 471 K/mm3 (150-400); RDW Coefficient Variation 18.3 % (11.7-14.2); RDW Standard Deviation 53.7 fL (35.1-46.3); Red Blood Cell Count 4.53 M/mm3 (4.30-5.90); White Blood Cell Count 8.28 K/mm3 (4.00-11.30)
[2024-09-07 18:35] LABS: Color, Urine Pale Yellow (P-Yellow)
[2024-09-07 18:40] LABS: Red Blood Cells, Urine TNTC /hpf (0-2); White Blood Cells, Urine TNTC /hpf (0-5)
[2024-09-07 18:41] LABS: Bacteria Many /hpf; Mucus Light (0-Heavy); Squamous Epithelial Cells Rare /hpf (Few)
[2024-09-07 18:54] LABS: Albumin, Blood 2.9 g/dL (3.4-5.0); Albumin/Globulin Ratio 0.6 (0.8-1.8); Bilirubin, Total 0.3 mg/dL (0.1-1.0); Bun/Creatinine Ratio 19.4 (12.0-20.0); Calcium, Blood 9.2 mg/dL (8.5-10.1); Creatinine, Blood 1.29 mg/dL (0.60-1.20); Globulin, Blood 4.6 g/dL (2.2-4.0); Potassium, Blood 3.5 mmol/L (3.5-5.5); Total Protein, Blood 7.5 g/dL (6.4-8.2)
[2024-09-07 19:04] LABS: Influenza A, PCR NEGATIVE (NEGATIVE); Influenza B, PCR NEGATIVE (NEGATIVE); Resp Syncytial Virus, PCR NEGATIVE (NEGATIVE); SARS-Cov-2 (COVID-19) PCR, MMC NEGATIVE (NEGATIVE)
[2024-09-07] MEDS ORDERED: Trimethoprim/Sulfamethoxazole DS Tab PO ONE (19:30)
[2024-09-07] MEDS ORDERED: Lidocaine 2% Jelly Uro-Jet UR ONE (21:00)
[2024-09-07] MEDS ORDERED: NS 1,000 ML IV SCH (21:10)
[2024-09-07] MEDS ORDERED: SULTRIDS PO (22:29)
[2024-09-08 00:30] VITALS: BP 122/77
== END 2024-09-08 01:05 | disposition home or self-care (01) ==
LOC: ER 16:30
PROVIDERS: Student in an Organized Health Care Education/Training Program
DX: N39.0 Urinary tract infection, site not specified (principal); R19.7 Diarrhea, unspecified; F17.210 Nicotine dependence, cigarettes, uncomplicated
CPT/HCPCS: 0241U; 51702; 51798; 74177; 80053; 81001; 83690; 85025; 87077; 87086; 87147; 87186; 96361; 96374; 99284-25; A9270; J2405; J7030; Q9967

== ENCOUNTER 2024-09-17 06:39 | Emergency (ER) | payer OTHER ==
[~2024-09-17] VITALS: Ht 195.6 cm; Wt 68.0 kg
[~2024-09-17 06:39] MED LIST changes: +SULTRIDS PO
[2024-09-17] MEDS ORDERED: NAPR500 PO (09:35)
[2024-09-17 09:40] VITALS: BP 136/82
== END 2024-09-17 09:50 | disposition home or self-care (01) ==
LOC: ER 06:39
DX: S16.1XXA Strain of muscle, fascia and tendon at neck level, initial encounter (principal); N40.0 Benign prostatic hyperplasia without lower urinary tract symptoms; F17.210 Nicotine dependence, cigarettes, uncomplicated; Z98.1 Arthrodesis status; W01.0XXA Fall on same level from slipping, tripping and stumbling without subsequent striking against object, initial encounter
CPT/HCPCS: 72040; 99283-25

== ENCOUNTER 2025-07-29 11:33 | Emergency (ER) | payer OTHER ==
[~2025-07-29] VITALS: Ht 193 cm; Wt 77.1 kg
[~2025-07-29 11:33] MED LIST changes: +NAPR500 PO
[2025-07-29] MEDS ORDERED: Ketorolac Tromethamine 30mg Vial IV ONE (11:50)
[2025-07-29 12:20] LABS: Source, Urine Voided
[2025-07-29 12:26] LABS: Bilirubin, Urine Neg (Neg); Glucose Qualitative, Urine Neg (Neg); Ketones, Urine Neg (Neg); Leukocyte Esterase, Urine 3+ (Neg); Protein, Urine 3+ (Neg); Specific Gravity, Urine 1.015 (1.003-1.022); Urobilinogen, Urine NORM (Normal)
[2025-07-29 12:31] LABS: Color, Urine Pale Yellow (P-Yellow)
[2025-07-29 12:33] LABS: White Blood Cells, Urine TNTC /hpf (0-5)
[2025-07-29] MEDS ORDERED: IBUP800 PO (14:10)
[2025-07-29] MEDS ORDERED: Cipro500 MG PO (14:10)
[2025-07-29 14:12] VITALS: BP 104/94
== END 2025-07-29 14:17 | disposition home or self-care (01) ==
LOC: ER 11:33
PROVIDERS: Emergency Medicine
DX: N45.2 Orchitis (principal); F17.210 Nicotine dependence, cigarettes, uncomplicated; Z79.899 Other long term (current) drug therapy
CPT/HCPCS: 76870; 81001; 87077; 87086; 87147; 87186; 96374; 99284-25; A9270; J1885

== ENCOUNTER 2025-08-06 03:09 | Inpatient (IN) | payer OTHER ==
[~2025-08-06] VITALS: Ht 193 cm; Wt 76.1 kg
[2025-08-06] VITALS (11 sets, daily range): BP systolic 84–128; BP diastolic 52–85
[~2025-08-06 03:09] MED LIST changes: +Cipro500 MG PO
[2025-08-06 03:36] LABS: Source, Urine Clean Catch
[2025-08-06 03:39] LABS: Bilirubin, Urine Neg (Neg); Glucose Qualitative, Urine Neg (Neg); Ketones, Urine Neg (Neg); Leukocyte Esterase, Urine 3+ (Neg); Protein, Urine 2+ (Neg); Specific Gravity, Urine 1.010 (1.003-1.022); Urobilinogen, Urine NORM (Normal)
[2025-08-06 03:41] LABS: Color, Urine Pale Yellow (P-Yellow)
[2025-08-06 03:45] LABS: White Blood Cells, Urine TNTC /hpf (0-5)
[2025-08-06] MEDS ORDERED: Ketorolac Tromethamine 15mg Vial IV ONE (04:10)
[2025-08-06] MEDS ORDERED: CefTRIAXone Sodium 1,000 MG in NS 50 ML IV ONE (04:10)
[2025-08-06] MEDS ORDERED: Vancomycin (Pharmacy Consult) IV PRN (04:45)
[2025-08-06] MEDS ORDERED: NS 1,000 ML IV SCH ×3 (04:45→15:40)
[2025-08-06 04:53] LABS: BASOPHILS ABSOLUTE AUTO 0.07 K/mm3 (0.00-0.23); BASOPHILS PERCENT AUTO 1 % (0-2); EOSINOPHILS ABSOLUTE AUTO 0.16 K/mm3 (0.00-0.68); EOSINOPHILS PERCENT AUTO 1 % (0-6); Hematocrit 30.7 % (37.0-53.0); Hemoglobin 10.1 g/dL (13.5-17.5); IMMATURE GRAN ABSOLUTE AUTO 0.07 K/mm3 (0.00-0.10); IMMATURE GRAN PERCENT AUTO 1 % (0-1); LYMPHOCYTES ABSOLUTE AUTO 1.33 K/mm3 (0.84-5.20); LYMPHOCYTES PERCENT AUTO 11 % (21-46); MONOCYTES ABSOLUTE AUTO 1.32 K/mm3 (0.16-1.47); MONOCYTES PERCENT AUTO 10 % (4-13); Mean Corpuscular HGB Conc 32.9 g/dL (31.5-36.5); Mean Corpuscular Volume 85 fL (80-100); NEUTROPHILS ABSOLUTE AUTO 9.74 K/mm3 (1.96-9.15); NEUTROPHILS PERCENT AUTO 77 % (41-73); NRBC ABSOLUTE 0.00 K/mm3 (0.00-0.02); NRBC Auto 0.0 /100 WBC (0.0-0.2); Platelet Count 395 K/mm3 (150-400); RDW Coefficient Variation 15.2 % (11.7-14.2); RDW Standard Deviation 47.7 fL (35.1-46.3)
[2025-08-06 05:11] LABS: Alanine Aminotransfer (ALT/SGP 18.0 U/L (12-78); Albumin, Blood 2.8 g/dL (3.4-5.0); Albumin/Globulin Ratio 0.7 (0.8-1.8); Anion Gap 8.0 mmol/L (3-11); Aspartate Aminotrans (AST/SGOT 19.0 U/L (12-37); Bilirubin, Total 0.2 mg/dL (0.1-1.0); Blood Urea Nitrogen 23.0 mg/dL (8-24); CO2, Blood 24.0 mmol/L (21-32); Calcium, Blood 8.4 mg/dL (8.5-10.1); Chloride, Blood 108.0 mmol/L (98-108); Creatinine, Blood 1.7 mg/dL (0.60-1.20); Globulin, Blood 4.2 g/dL (2.2-4.0); Glucose, Blood 102.0 mg/dL (70-99); Potassium, Blood 3.6 mmol/L (3.5-5.5); Sodium, Blood 136.0 mmol/L (136-145); Total Protein, Blood 7.0 g/dL (6.4-8.2)
[2025-08-06] MEDS ORDERED: Ondansetron HCl 2 MG / ML 2ML Vial IV PRN (05:30)
[2025-08-06] MEDS ORDERED: Vancomycin (Pharmacy Consult) IV SCH (05:30)
[2025-08-06] MEDS ORDERED: FLU VACC TS2025-26(6MOS UP)/PF 45 MCG/0.5 ML SYRINGE IM SCH (05:35)
[2025-08-06] MEDS ORDERED: FentaNYL Citrate 50 MCG/ML 2 ML Injection IV PRN ×3 (05:35→16:50)
[2025-08-06] MEDS ORDERED: Cefepime HCl 1,000 MG in NS 100 ML IV SCH (06:09)
--- NOTE | 2025-08-06 06:39 | NUR ---
PT ARRIVED @0638 FROM THE ED IN A GURNEY AND TRANSFERRED HIMSELF TO THE HOSPITAL BED. PT IS AGITATED. BED AT THE LOWEST POSITION, CALL LIGHT W/I REACH. EDUCATED COMMUNICATIONS STRATEGIST LIGHT. AND FALL PRECAUTIONS.
[2025-08-06] MEDS ORDERED: NS 250 ML IV PRN (08:10)
--- NOTE | 2025-08-06 14:31 | NUR ---
PT RECENTLY TO [facility] BY SHANICE. Patient confirms NPO status and agrees with scheduled surgery. Pre-Op teaching done. Pt verbalizes understanding. Lungs clear T/O to Auscultation. History, Chart, Medications and Allergies reviewed before start of procedure.
--- NOTE | 2025-08-06 14:34 | NUR ---
TELE ALSO BEEN NOTIFIED PT TO SDS.
[2025-08-06] MEDS ORDERED: Bupivacaine 0.5% HCl 5 MG/ML 30MLVIAL ONE (14:55)
--- NOTE | 2025-08-06 15:12 | NUR ---
REPORT TO Jenn HERNANDEZ. PT RESTING QUIETLY. ASSISTED WITH ADL'S PRN.
[2025-08-06] MEDS ORDERED: FentaNYL Citrate 50 MCG/ML 2 ML Injection ONE (15:55)
[2025-08-06] MEDS ORDERED: Dexamethasone Sod Phos 10 MG/ML 1ML VIAL ONE (16:06)
[2025-08-06] MEDS ORDERED: Ondansetron HCl 2 MG / ML 2ML Vial ONE (16:06)
[2025-08-06] MEDS ORDERED: HYDROmorphone HCl/Pf 1MG SYR ONE (16:18)
[2025-08-06] MEDS ORDERED: Phenylephrine HCl 100 MCG/ML-NS 10MLSYR (1MG/10ML) ONE (16:24)
[2025-08-06] MEDS ORDERED: Metoclopramide HCl 5MG / ML 2ML Vial IV PRN (16:50)
[2025-08-06] MEDS ORDERED: ePHEDrine Sulfate 50 MG/ML 1ML Injection IV PRN (16:50)
[2025-08-06] MEDS ORDERED: ePHEDrine Sulfate 50 MG/ML 1ML Injection ONE (16:53)
[2025-08-06] MEDS ORDERED: HYDROmorphone HCl/Pf 1MG SYR IV PRN ×2 (16:55)
--- NOTE | 2025-08-06 18:31 | NUR ---
END OF SHIFT NOTE PATIENT RESTING IN BED. A&O4 AND IND IN BED. STANDBY ASSIST FOR LINES AND CORDS. PALACIOS IN PLACE, DRAINING TO GRAVITY CLEAR/YELLOW URINE. IV INFUSING ABX TO ORDER. NO OTHER CONCERNS FOR THIS SHIFT.
--- NOTE | 2025-08-07 03:10 | NUR ---
SHIFT SUMMARY POST OP EVENING, REINFORCED IRONWORKER. NO ACUTE DISTRESS NOTED, PT IN GOOD SPIRITS AT HS. SIGNIFICANTLY SMALLER SIZE, SMALL AMOUNT OF DRAINAGE NOTED ON THE TESTCLES. PT DENIES PAIN AND DISCOMFORT AT HS, STILL GROGGY BUT EASILY AROUSABLE A/O X4 AT HS. MULTIPLE REQUESTS FOR FOOD, ICE CREAM ESPECIALLY DURING THE NIGHT HRS. TELE: NSR @ 68, PT DENIES SOB, CP/PRESSURE. BED AT THE LOWEST POSITION, CALL LIGHT WITHIN REACH.
[2025-08-07 04:05] VITALS: BP 121/58
[2025-08-07 05:25] LABS: BASOPHILS ABSOLUTE AUTO 0.05 K/mm3 (0.00-0.23); BASOPHILS PERCENT AUTO 0 % (0-2); EOSINOPHILS ABSOLUTE AUTO 0.01 K/mm3 (0.00-0.68); EOSINOPHILS PERCENT AUTO 0 % (0-6); Hematocrit 28.1 % (37.0-53.0); Hemoglobin 9.1 g/dL (13.5-17.5); IMMATURE GRAN ABSOLUTE AUTO 0.09 K/mm3 (0.00-0.10); IMMATURE GRAN PERCENT AUTO 1 % (0-1); LYMPHOCYTES ABSOLUTE AUTO 1.13 K/mm3 (0.84-5.20); LYMPHOCYTES PERCENT AUTO 6 % (21-46); MONOCYTES ABSOLUTE AUTO 0.66 K/mm3 (0.16-1.47); MONOCYTES PERCENT AUTO 4 % (4-13); Mean Corpuscular HGB Conc 32.4 g/dL (31.5-36.5); Mean Corpuscular Volume 85 fL (80-100); NEUTROPHILS ABSOLUTE AUTO 15.60 K/mm3 (1.96-9.15); NEUTROPHILS PERCENT AUTO 89 % (41-73); NRBC ABSOLUTE 0.00 K/mm3 (0.00-0.02); NRBC Auto 0.0 /100 WBC (0.0-0.2); Platelet Count 425 K/mm3 (150-400); RDW Coefficient Variation 15.6 % (11.7-14.2); RDW Standard Deviation 48.6 fL (35.1-46.3)
[2025-08-07 05:55] LABS: Alanine Aminotransfer (ALT/SGP 13.0 U/L (12-78); Albumin, Blood 2.3 g/dL (3.4-5.0); Albumin/Globulin Ratio 0.6 (0.8-1.8); Anion Gap 10.0 mmol/L (3-11); Aspartate Aminotrans (AST/SGOT 14.0 U/L (12-37); Bilirubin, Total 0.2 mg/dL (0.1-1.0); Blood Urea Nitrogen 22.0 mg/dL (8-24); CO2, Blood 23.0 mmol/L (21-32); Calcium, Blood 8.5 mg/dL (8.5-10.1); Chloride, Blood 109.0 mmol/L (98-108); Creatinine, Blood 1.47 mg/dL (0.60-1.20); Globulin, Blood 3.7 g/dL (2.2-4.0); Glucose, Blood 150.0 mg/dL (70-99); Potassium, Blood 3.9 mmol/L (3.5-5.5); Sodium, Blood 138.0 mmol/L (136-145); Total Protein, Blood 6.0 g/dL (6.4-8.2)
[2025-08-07 07:13] VITALS: BP 102/57
[2025-08-07 11:14] VITALS: BP 114/59
[2025-08-07 15:31] VITALS: BP 107/61
[2025-08-07 17:42] LABS: Vancomycin, Trough 13.4 ug/mL (5.0-10.0)
--- NOTE | 2025-08-07 18:23 | NUR ---
SHIFT SUMMARY PATIENT ALERT AND ORIENTED X4. PLEASANT AND RECEPTIVE DURING CARE. TOLERATING PO, PALACIOS IN PLACE. NO ACUTE CHANGE THROUGHOUT THE SHIFT. VSS. MEDICATION ADMINISTERED PER EMAR. DR. MEZA ROUNDED ON PATIENT, CHANGED DRESSING, NEW WOUND CARE ORDER IN PLACE. BED LOCKED AND IN LOWEST POSITION. CALL LIGHT WITHIN REACH.
[2025-08-07 19:27] VITALS: BP 107/71
[2025-08-07] MEDS ORDERED: Lactobacil 2-S.Thermo-Bifido 1 1 Cap PO SCH (21:00)
[2025-08-07 23:40] VITALS: BP 119/77
[2025-08-08 04:06] VITALS: BP 120/73
--- NOTE | 2025-08-08 06:50 | NUR ---
SHIFT SUMMARY PT WITH SCROTAL DRESSING CHANGED ON PRIOR SHIFT. OUTER DRESSING FELL OFF AND REPLACED WITH W/D DRESSING. MEDICATED FOR PAIN PER EMAR WITH OXYCODONE. IV ANTIBIOTICS CONTINUE PER ORDER. PALACIOS DRAINING CLEAR YELLOW URINE. PT SLEPT INTERMITTTENTLY DURING THE NIGHT.
[2025-08-08 07:14] LABS: BASOPHILS ABSOLUTE AUTO 0.06 K/mm3 (0.00-0.23); BASOPHILS PERCENT AUTO 1 % (0-2); EOSINOPHILS ABSOLUTE AUTO 0.32 K/mm3 (0.00-0.68); EOSINOPHILS PERCENT AUTO 3 % (0-6); Hematocrit 28.9 % (37.0-53.0); Hemoglobin 9.2 g/dL (13.5-17.5); IMMATURE GRAN ABSOLUTE AUTO 0.09 K/mm3 (0.00-0.10); IMMATURE GRAN PERCENT AUTO 1 % (0-1); LYMPHOCYTES ABSOLUTE AUTO 1.42 K/mm3 (0.84-5.20); LYMPHOCYTES PERCENT AUTO 15 % (21-46); MONOCYTES ABSOLUTE AUTO 0.52 K/mm3 (0.16-1.47); MONOCYTES PERCENT AUTO 5 % (4-13); Mean Corpuscular HGB Conc 31.8 g/dL (31.5-36.5); Mean Corpuscular Volume 85 fL (80-100); NEUTROPHILS ABSOLUTE AUTO 7.22 K/mm3 (1.96-9.15); NEUTROPHILS PERCENT AUTO 75 % (41-73); NRBC ABSOLUTE 0.00 K/mm3 (0.00-0.02); NRBC Auto 0.0 /100 WBC (0.0-0.2); Platelet Count 401 K/mm3 (150-400); RDW Coefficient Variation 15.9 % (11.7-14.2); RDW Standard Deviation 49.8 fL (35.1-46.3)
[2025-08-08 07:45] LABS: Anion Gap 6.0 mmol/L (3-11); Blood Urea Nitrogen 23.0 mg/dL (8-24); CO2, Blood 26.0 mmol/L (21-32); Calcium, Blood 8.1 mg/dL (8.5-10.1); Chloride, Blood 107.0 mmol/L (98-108); Creatinine, Blood 1.29 mg/dL (0.60-1.20); Glucose, Blood 92.0 mg/dL (70-99); Potassium, Blood 4.2 mmol/L (3.5-5.5); Sodium, Blood 135.0 mmol/L (136-145)
[2025-08-08 07:48] VITALS: BP 97/57
[2025-08-08 15:47] VITALS: BP 99/58
--- NOTE | 2025-08-08 15:55 | NUR ---
PROVIDED NECK PILLOW TO PATIENT IN AN ATTEMPT TO ALEVIATE DISCOMFORT WHILE SITTING UP IN THE CHAIR
--- NOTE | 2025-08-08 17:59 | NUR ---
SHIFT SUMMARY MR RAYMOND IS ORIENTATED X4. PAIN CONTROLLED WITH OXY, GIVEN FENTANYL IV PRIOR TO DRESSING CHANGE. OLD WOUND PADDING HAD S/S DRAINAGE. PAINFUL TO REPACK SCROTAL WOUND BUT PT TOLERATED IT AND HAD PAIN RELIEF AFTER DRESSING CHANGE COMPLETED. PALACIOS CATHETER IN PLACE DRAINING CLEAR YELLOW URINE. TELEMETRY DISCONTINUED TODAY. MR RAYMOND REFUSED SCDS. OFFERED ARMIN HOSE WHICH HE ORIGINALLY ACCEPTED AND WAS MEAASURED FOR, THEN HE DECLINED HAVING THEM PUT ON. HE WAS EDUCATED ON RATIONALE FOR SCDS AND TEDS. HE WAS ENCOURAGED TO GET UP OUT OF BED. HE WAS ABLE TO STAND INDEPENDENTLY WITH STAND BY ASSISTANCE, BUT WAS UNCOMFORTABLE SITTING UP IN A CHAIR. MR RAYMOND REPORTS A SIGNIFICANT WEIGHT LOSS. HE HAS A GOOD APPETITE, HE IS REQUESTING FREQUENT HIGH SUGAR SNACKS. HE WAS EDUCATED ON SUGAR AND WOUND HEALING AND SITUATION WAS DISCUSSED WITH DREW FINANCING ANALYST. BED LOW, CALL LIGHT IN REACH.
[2025-08-08 19:57] VITALS: BP 106/65
[2025-08-09 04:09] VITALS: BP 102/65
--- NOTE | 2025-08-09 05:30 | NUR ---
SHIFT SUMMARY PT HAS BEEN RUNNING FEVERS THROUGH THE NIGHT. PRECISION GRINDER PROVIDER NOTIFIED WITH NO NEW ORDERS RECEIVED. T-MAX 102 AT 0130. PT MEDICATED WITH TYLENOL FOR FEVER AND OXYCODONE FOR PAIN PER THE EMAR. DRESSING IS INTACT TO SCROTUM. PALACIOS DRAINING CLEAR YELLOW URINE. PT'S IV CAME OUT DUE TO SWEATING. POWERGLIDE STARTED PER NURSING PLEXIGLAS FORMER. IV ANTIBIOTICS CONTINUE PER ORDER. PT SLEPT INTERMITTENTLY DURING THE NIGHT.
[2025-08-09 05:33] LABS: BASOPHILS ABSOLUTE AUTO 0.04 K/mm3 (0.00-0.23); BASOPHILS PERCENT AUTO 1 % (0-2); EOSINOPHILS ABSOLUTE AUTO 0.27 K/mm3 (0.00-0.68); EOSINOPHILS PERCENT AUTO 3 % (0-6); Hematocrit 30.6 % (37.0-53.0); Hemoglobin 10.1 g/dL (13.5-17.5); IMMATURE GRAN ABSOLUTE AUTO 0.08 K/mm3 (0.00-0.10); IMMATURE GRAN PERCENT AUTO 1 % (0-1); LYMPHOCYTES ABSOLUTE AUTO 1.12 K/mm3 (0.84-5.20); LYMPHOCYTES PERCENT AUTO 14 % (21-46); MONOCYTES ABSOLUTE AUTO 0.72 K/mm3 (0.16-1.47); MONOCYTES PERCENT AUTO 9 % (4-13); Mean Corpuscular HGB Conc 33.0 g/dL (31.5-36.5); Mean Corpuscular Volume 82 fL (80-100); NEUTROPHILS ABSOLUTE AUTO 5.96 K/mm3 (1.96-9.15); NEUTROPHILS PERCENT AUTO 73 % (41-73); NRBC ABSOLUTE 0.00 K/mm3 (0.00-0.02); NRBC Auto 0.0 /100 WBC (0.0-0.2); Platelet Count 411 K/mm3 (150-400); RDW Coefficient Variation 15.3 % (11.7-14.2); RDW Standard Deviation 46.6 fL (35.1-46.3)
[2025-08-09 05:49] LABS: Anion Gap 11.0 mmol/L (3-11); Blood Urea Nitrogen 22.0 mg/dL (8-24); CO2, Blood 26.0 mmol/L (21-32); Calcium, Blood 8.9 mg/dL (8.5-10.1); Chloride, Blood 99.0 mmol/L (98-108); Creatinine, Blood 1.43 mg/dL (0.60-1.20); Glucose, Blood 105.0 mg/dL (70-99); Potassium, Blood 4.5 mmol/L (3.5-5.5); Sodium, Blood 131.0 mmol/L (136-145)
[2025-08-09 07:41] VITALS: BP 96/52
[2025-08-09 14:15] VITALS: BP 110/65
[2025-08-09 16:10] LABS: Source, Urine Foley catheter
[2025-08-09 16:23] LABS: Bilirubin, Urine Neg (Neg); Color, Urine Yellow (P-Yellow); Glucose Qualitative, Urine Neg (Neg); Ketones, Urine Neg (Neg); Leukocyte Esterase, Urine 1+ (Neg); Protein, Urine 1+ (Neg); Specific Gravity, Urine 1.015 (1.003-1.022); Urobilinogen, Urine NORM (Normal)
[2025-08-09 16:36] LABS: WBC Cast 0-2 /lpf (0)
[2025-08-09 18:17] LABS: Vancomycin, Trough 20.3 ug/mL (5.0-10.0)
[2025-08-09 20:40] VITALS: BP 99/61
[2025-08-10 05:03] VITALS: BP 97/60
--- NOTE | 2025-08-10 05:27 | NUR ---
END OF SHIFT SUMMARY: A&Ox4. PLEASANT AND COOPERATIVE WITH CARE. CALLS APPROPRIATELY AND IS ABLE TO ADVOCATE NEEDS EFFECTIVELY. VSS. BREATHING EVEN AND UNLABORED c RA LPM/NC. TOLERATING DIET. PALACIOS PATENT AND DRAINING YELLOW URINE TO GRAVITY. MEDS WHOLE c FLUIDS. REQUESTED ICE CREAM x3 LAST NIGHT, OTHERWISE SLEPT ENTIRETY OF SHIFT WITHOUT C / O PAIN OR DISCOMFORT. BED IN LOWEST POSITION, CALL LIGHT WITHIN REACH, ALL NEEDS MET. REPORT TO ONCOMING NURSE.
--- NOTE | 2025-08-10 06:48 | NUR ---
PATIENT WOKE UP AT 0630 C/O PAIN AND GENERALIZED MALAISE. MEDICATED PRN FENTANYL. VSS.
[2025-08-10 07:40] VITALS: BP 98/63
--- NOTE | 2025-08-10 08:55 | NUR ---
NURSE NOTE; WOUND DRESSING APPLIED TO OPEN WOUND ON L TESTICLE. XEROFORM APPLIED TO AREA COVERED WITH FULL PACKAGE OF 4X4 GAUZE. ABD PAD APPLIED OVER GAUZE, WRAPPING UNDER AND ABOVE SCROTUM SAC. PT TOLERATED DRESSING APPLICATION WELL.
[2025-08-10] MEDS ORDERED: Enoxaparin 40 MG/0.4 ML SYR SC SCH (14:00)
[2025-08-10 15:23] VITALS: BP 106/64
--- NOTE | 2025-08-10 17:16 | NUR ---
SHIFT SUMMARY; PT A/OX4 AND ON BEDREST. SCROTUM DRESSING APPLIED PER WOUND ORDER. SEE NURSE NOTE FROM AM. PT MEDICATED FOR PAIN PRN PER EMAR. PT REMAINS AFREBILE THROUGHOUT SHIFT. PALACIOS D/C'D PER PROVIDER ORDER. PT TOLERATED WELL. BED IN LOW POSITION AND CALL LIGHT WITHIN REACH.
--- NOTE | 2025-08-10 17:33 | NUR ---
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
[2025-08-10 19:24] VITALS: BP 97/62
[2025-08-11 05:04] VITALS: BP 94/59
--- NOTE | 2025-08-11 06:01 | NUR ---
END OF SHIFT SUMMARY: A&Ox4. PLEASANT AND COOPERATIVE WITH CARE. CALLS APPROPRIATELY AND IS ABLE TO ADVOCATE NEEDS EFFECTIVELY. VSS. BREATHING EVEN AND UNLABORED c RA LPM/NC. TOLERATING DIET. LOW URINE OUTPUT, THOUGH C/W BLADDER SCAN RESULTS. MEDS WHOLE c FLUIDS. MEDICATED PRN PAIN x1. SLEPT MAJORITY OF SHIFT. BED IN LOWEST POSITION, CALL LIGHT WITHIN REACH, ALL NEEDS MET. REPORT TO ONCOMING NURSE.
[2025-08-11 06:02] LABS: BASOPHILS ABSOLUTE AUTO 0.03 K/mm3 (0.00-0.23); BASOPHILS PERCENT AUTO 0 % (0-2); EOSINOPHILS ABSOLUTE AUTO 0.17 K/mm3 (0.00-0.68); EOSINOPHILS PERCENT AUTO 3 % (0-6); Hematocrit 29.0 % (37.0-53.0); Hemoglobin 9.4 g/dL (13.5-17.5); IMMATURE GRAN ABSOLUTE AUTO 0.10 K/mm3 (0.00-0.10); IMMATURE GRAN PERCENT AUTO 2 % (0-1); LYMPHOCYTES ABSOLUTE AUTO 1.62 K/mm3 (0.84-5.20); LYMPHOCYTES PERCENT AUTO 24 % (21-46); MONOCYTES ABSOLUTE AUTO 0.52 K/mm3 (0.16-1.47); MONOCYTES PERCENT AUTO 8 % (4-13); Mean Corpuscular HGB Conc 32.4 g/dL (31.5-36.5); Mean Corpuscular Volume 83 fL (80-100); NEUTROPHILS ABSOLUTE AUTO 4.35 K/mm3 (1.96-9.15); NEUTROPHILS PERCENT AUTO 64 % (41-73); NRBC ABSOLUTE 0.00 K/mm3 (0.00-0.02); NRBC Auto 0.0 /100 WBC (0.0-0.2); Platelet Count 357 K/mm3 (150-400); RDW Coefficient Variation 15.1 % (11.7-14.2); RDW Standard Deviation 46.1 fL (35.1-46.3)
[2025-08-11 06:22] LABS: Anion Gap 7.0 mmol/L (3-11); Blood Urea Nitrogen 35.0 mg/dL (8-24); CO2, Blood 28.0 mmol/L (21-32); Calcium, Blood 8.5 mg/dL (8.5-10.1); Chloride, Blood 105.0 mmol/L (98-108); Creatinine, Blood 1.24 mg/dL (0.60-1.20); Glucose, Blood 118.0 mg/dL (70-99); Potassium, Blood 4.2 mmol/L (3.5-5.5); Sodium, Blood 136.0 mmol/L (136-145)
[2025-08-11 07:55] VITALS: BP 99/63
--- NOTE | 2025-08-11 08:09 | NUR ---
ASSISTED DR MEZA WITH SCROTAL REBANDAGE. NO CHANGE IN WOUND MINIMAL DISCHARGE. REWRAPPED WITH XEROFORM, MOISTENED 4X4 GAUZE WITH WITH SALINE THEN DRY GAUZE ON TOP WITH KERLIX WRAP COMPLETED BY DR MEZA. PT TOLERATED WELL.
[2025-08-11 15:40] VITALS: BP 128/84
--- NOTE | 2025-08-11 18:09 | NUR ---
SHIFT SUMMARY; PT A/OX4 AND CHAIR FAST DUE TO CONDITION OF WOUND HEALING. DRESSING CHANGED TO L SCROTUM PER WOUND ORDER. NO ACUTE CHANGES SEEN IN AREA. PT MEDICATED PER EMAR. PT HAD NO COMPLAINTS OF PAIN T/O THIS SHIFT AND REMAINS AFEBRILE. BED IN LOW POSITION AND CALL LIGHT WITHIN REACH.
--- NOTE | 2025-08-11 18:17 | NUR ---
THIS FORESTRY AID TECHNICIAN HAS REVIEWED AND AGREES WITH ALL NOTES AND ASSESSMENTS BY DAVID CHOI.
[2025-08-11 20:56] VITALS: BP 117/77
--- NOTE | 2025-08-12 03:40 | NUR ---
SHIFT SUMMARY NO ACUTE EVENTS DURING THIS SHIFT. MEDICATED FOR C/O 04/11 TESTICLE PAIN WITH GOOD EFFECIVNESS. NEW DRESSING APPLIED ON TESTES, SCANT AMOUNT OF DRAINAGE NOTED ON ABD PAD. BED AT THE LOWEST POSITION, CALL LIGHT W/I REACH. PT IS A/O X4M, ABLE TO MAKE HIS NEEDS KNOWN AND COOPERAIVE WIT CARE.
[2025-08-12 05:00] VITALS: BP 114/78
[2025-08-12 07:03] VITALS: BP 111/67
[2025-08-12] MEDS ORDERED: ACET325 PO (12:33)
[2025-08-12] MEDS ORDERED: AMOCLA875 PO (12:34)
[2025-08-12] MEDS ORDERED: IBUP400 PO (12:35)
[2025-08-12] MEDS ORDERED: VISBIOME 112.51 EACH PO (12:45)
[2025-08-12] MEDS ORDERED: OXAYDO5 M4 PO (12:50)
[2025-08-12] MEDS ORDERED: SENN187 PO (12:51)
--- NOTE | 2025-08-12 14:29 | NUR ---
1325: PATIENT DISCHARGE TO HOME. PRINTED AND REVIEWED DISCHARGE INSTRUCTIONS WITH PATIENT, VERBALIZED UNDERSTANDING. D/C'D POWERGLIDE. PATIENT TOLERATING PO AND VOIDING. FAXED NEW PRECRIPTION TO [facility]. VSS. PATIENT REFUSED W/C WHEN DISCHARGED.
--- NOTE | 2025-08-12 14:40 | NUR ---
THIS YARN DUMPER HAS REVIEWED AND AGREES WITH ALL NOTES AND ASSESSMENTS BY DAVID MERA.
== END 2025-08-12 13:23 | disposition home or self-care (01) | DRG 717 ==
LOC: ER 03:09 → MEDS 05:28 → ENPENDDIS 08-12 10:47 → MEDS 08-12 13:23
PROVIDERS: Emergency Medicine; Internal Medicine; Student in an Organized Health Care Education/Training Program; Urology; ADMIT Internal Medicine
PROC: 3E03329 Introduction of Other Anti-infective into Peripheral Vein, Percutaneous Approach (ICD-10-PCS; 2025-08-06)
PROC: 3E02340 Introduction of Influenza Vaccine into Muscle, Percutaneous Approach (ICD-10-PCS; 2025-08-06)
PROC: 0V950ZZ Drainage of Scrotum, Open Approach (ICD-10-PCS; principal; 2025-08-06 15:00)
PROC: 0T9B70Z Drainage of Bladder with Drainage Device, Via Natural or Artificial Opening (ICD-10-PCS; 2025-08-07)
DX: N49.2 Inflammatory disorders of scrotum (principal); N13.6 Pyonephrosis; N17.9 Acute kidney failure, unspecified; F25.9 Schizoaffective disorder, unspecified; F17.210 Nicotine dependence, cigarettes, uncomplicated; N18.2 Chronic kidney disease, stage 2 (mild); N40.1 Benign prostatic hyperplasia with lower urinary tract symptoms; R33.8 Other retention of urine; R50.9 Fever, unspecified; B96.20 Unspecified Escherichia coli [E. coli] as the cause of diseases classified elsewhere; B95.1 Streptococcus, group B, as the cause of diseases classified elsewhere; E86.0 Dehydration; Z98.1 Arthrodesis status; Z79.2 Long term (current) use of antibiotics; Z79.1 Long term (current) use of non-steroidal anti-inflammatories (NSAID); Z86.14 Personal history of Methicillin resistant Staphylococcus aureus infection; Z89.421 Acquired absence of other right toe(s); Z23 Encounter for immunization
CPT/HCPCS: 36415; 51701; 51702; 74177; 76857; 76870; 80048; 80053; 80202; 81001; 83605; 83880; 85025; 87040; 87070; 87075; 87077; 87086; 87147; 87186; 87205; 88304; 94760; 96365-59; 96375; 99285-25; A9270; J0692; J0696; J1100; J1171; J1650; J1885; J2371; J2405; J2704; J3010; J3373; J7030; J7040; J7050; Q9967

== ENCOUNTER 2025-08-22 00:28 | Day surgery (SDC) | payer OTHER ==
[~2025-08-22 00:28] MED LIST changes: +ACET325 PO; +AMOCLA875 PO; +IBUP400 PO; +OXAYDO5 M4 PO; +SENN187 PO; +VISBIOME 112.51 EACH PO
[2025-08-22] MEDS ORDERED: Lidocaine HCl 4% Cream 5 GM ONE (09:51)
== END 2025-08-22 23:00 | disposition home or self-care (01) ==
LOC: WOUND 00:28
DX: T81.31XD Disruption of external operation (surgical) wound, not elsewhere classified, subsequent encounter (principal); N49.2 Inflammatory disorders of scrotum; N18.6 End stage renal disease; N40.0 Benign prostatic hyperplasia without lower urinary tract symptoms; F25.9 Schizoaffective disorder, unspecified; F17.290 Nicotine dependence, other tobacco product, uncomplicated
CPT/HCPCS: A9270; G0463